=== PATIENT | male | born 1960 | race Caucasian/White ===

== ENCOUNTER → 2019-07-16 | Outpatient (CLI) | payer BC, SELFPAY | PROVIDERS: Family Provider Family Medicine; Visit Provider Internal Medicine Medical Oncology | DX: Z08 Encounter for follow-up examination after completed treatment for malignant neoplasm (principal); Z85.038 Personal history of other malignant neoplasm of large intestine; I10 Essential (primary) hypertension; N20.0 Calculus of kidney; Z98.0 Intestinal bypass and anastomosis status; Z90.49 Acquired absence of other specified parts of digestive tract | CPT/HCPCS: 80053; 82378; 85025; 99213 ==

== ENCOUNTER 2020-01-21 08:43 | Outpatient (CLI) | payer BC, SELFPAY ==
--- NOTE | 2020-01-21 08:49 | CT_ITS ---
WS: [id number] Examination: CT of the chest, abdomen, pelvis. HISTORY: Abdominal pain. Contrast: OmniView 300, [address] of the chest After the bolus injection of contrast the pulmonary arteries fill readily. No filling defects were se en. The mediastinum appear to be normal there is heavy arteriosclerotic changes present the azygos lobe s hows arteriosclerotic changes. The aorta was normal with no filling defect no aneurysms. The peripheral lung show normal perfusion no filling defects to suggest pneumonia, mass effect, pneum onia, are pneumothorax. CT abdomen pelvis the liver was normal no infiltrating changes. The gallbladder shows a large stone measures 3.49 cm. An additional stone is seen along the surface o f the gallbladder. The pancreas was normal no filling defects. The stomach was normal, pancreas normal, the left adrenal gland shows a cyst measures 0.34 cm. A smal l cyst or adenoma seen off the right adrenal gland also. The aorta was normal as well as the inferior vena cava. The left kidney shows a parapelvic cyst measures 9 cm. The ureter was normal on the right. The right colon show no filling defects the appendix was normal as well as the small bowel. The transverse and descending colons were normal. The bladder show no abnormalities. The prostate was normal. The rectum showed no abnormalities. The rectum showed no defects. The bony pelvis was normal. The lumbar spine showed no aggressive changes. CT/CT chest abd pel w con* Impression: The chest appeared to be normal. Multiple cholelithiasis. A large left renal cysts. The left adrenal gland shows a prominent cyst The right adrenal glands suggests an adenoma.
[2020-01-21 09:19] LABS: Basophils % 0.4 %; Eosinophils # 0.2 10^3/uL (0.0-0.8); Eosinophils % 2.6 %; Hematocrit 45.4 % (42.0-52.0); Hemoglobin 14.2 g/dL (11.7-16.6); Lymphocytes # 1.9 10^3/uL (0.8-4.8); Lymphocytes % 27.9 %; Mean Corpuscular HGB Conc 31.3 g/dL (30.0-36.0); Mean Corpuscular Hemoglobin 29.4 pg (28.0-34.0); Mean Platelet Volume 9.7 fL (7.4-10.4); Monocytes # 0.8 10^3/uL (0.2-0.9); Monocytes % 12.1 %; Neutrophils # 3.9 10^3/uL (1.8-7.7); Neutrophils % 56.6 %; Nucleated Red Blood Cells % 0 %; Platelet Count 235 10^3/cmm (130-400); Red Blood Count 4.83 10^6/uL (4.1-5.3); Red Cell Distribution Width 13.6 % (12.1-15.1); White Blood Count 6.8 10^3/uL (4.0-10.0)
[2020-01-21 09:47] LABS: Carcinoembryonic Antigen 5.3 ng/mL (0.0-4.7)
[2020-01-21] MEDS: barium sulfate 450 mL Oral Susp PO (09:49)
[2020-01-21 09:58] LABS: Alanine Aminotransferase 24 U/L (0-41); Albumin Level 4.2 g/dL (3.5-5.2); Alkaline Phosphatase 55 IU/L (40-130); Anion Gap 14.7 (5-19); Aspartate Amino Transferase 18 U/L (0-40); Blood Urea Nitrogen 22 mg/dL (6-20); Calcium 9.9 mg/dL (8.5-10.5); Carbon Dioxide 27 mmol/L (22-29); Chloride 111 mmol/L (98-107); Globulin 2.6 g/dL (1.3-4.6); Glomerular Filtration Rate 86.4 mL/min (90-130); Glucose 111 mg/dL (65-115); Osmolality Calculated 303 mOsm/kg (285-295); Potassium 4.7 mmol/L (3.5-5.1); Sodium 148 mmol/L (136-145); Total Bilirubin 0.5 mg/dL (0.15-1.2); Total Protein 6.8 g/dL (6.6-8.7)
[2020-01-21] MEDS: iohexol 300 mg/mL 100 mL Btl IV (10:01)
== END 2020-01-21 08:44 | disposition home or self-care (01) ==
LOC: CT 08:47
PROVIDERS: PCP Family Medicine; Visit Provider Internal Medicine Medical Oncology
DX: R10.9 Unspecified abdominal pain (principal); C18.7 Malignant neoplasm of sigmoid colon; G62.0 Drug-induced polyneuropathy; K80.20 Calculus of gallbladder without cholecystitis without obstruction; N28.1 Cyst of kidney, acquired; N13.30 Unspecified hydronephrosis
CPT/HCPCS: 36415; 71260; 74177; 80053; 82378; 85025

== ENCOUNTER 2020-01-28 09:07 | Outpatient (CLI) | payer BC, SELFPAY ==
--- NOTE | 2020-01-29 06:41 | ONC FU_ITS ---
Dr. Barrett Patient Follow-Up Note Patient: Bk Tamayo Unit #: [id number]: 1960 Dicatated By: Eric Barrett M.D.Date of Visit:Jan 28, 2020 Onc Med Follow-up/Prog Note Chief Complaint: Colon cancer. 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 He has been in good general health. On 06/22/2016 he presented to the emergency room with back pain and constipation. He hadn't been aware of any blood in the stool or other associated GI symptoms. He had perhaps noticed a little decline in his energy/activity tolerance, and he did have an unexplained weight loss in the range of [address] of the abdomen/pelvis showed abnormal appearance of the sigmoid colon with wall thickening and shouldering. There was mild stranding of the surrounding fat and there are lymph nodes noted in the surrounding fat. The findings were suspicious for colon cancer. He underwent colonoscopy on 06/24/2016. It showed a partially obstructing, large size, fungating, malignant appearing mass in the sigmoid colon. It was circumferential and measured 7 x 5 cm. The scope was not able to be advanced beyond the tumor. On 06/25/2016 he underwent laparoscopic converted to open sigmoid colectomy with colorectal anastomosis. The procedure also included open repair of umbilical hernia. Pathology showed low-grade (well to moderately differentiated) infiltrating adenocarcinoma with penetration through the muscularis propria into the pericolonic fat. The tumor measured 8.0 x 5.5 x 2.7 cm. It did show evidence of lymphovascular space invasion. The margins were free. There was involvement in 6 of 14 pericolonic lymph nodes. His baseline CEA was significantly elevated at 74.0 ng/mL. On 07/28/2016 he underwent placement of Port-A-Cath venous access device in preparation for chemotherapy. Adjuvant chemotherapy with modified FOLFOX began on 08/18/2016. CEA 3.0 ng/mL. He received cycle 2 on 08/31/16. He did have significant nausea with both cycles of treatment, though he had no associated vomiting. He also experience some decrease in energy, and he felt very draggy . He had some shortness of breath with exertion. He had diarrhea with the 2nd cycle, but it lasted only about one day. 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 It was significant enough that he was not able to drink any cold liquids. Those symptoms persisted up until a few days prior to cycle 3 on 09/14/2016, at which point the oxaliplatin dosage was reduced one level. With cycle 4, on 09/28/2016, he had a further reduction in the oxaliplatin dosage for peristent neuropathy. Beginning wt cycle 5, on , the oxaliplatin was omitted. He then continued treatment with minimal toxicity. He began his 12th cycle of chemotherapy on 01/18/2017. Surveillance colonoscopy in 03/10/2017 showed small polyps in the descending and ascending colon. There was narrowing at the anastomotic site. Pathology on the descending colon polyp was tubulovillous adenoma. The ascending colon showed adenomatous polyp. Surveillance CT scans of the chest, abdomen, and pelvis on 06/27/2017 showed no evidence of recurrent or metastatic disease. 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 CT abdomen/pelvis on 12/21/2017 show evidence of prior sigmoidectomy with stable anastomotic site and no evidence of recurrent or metastatic disease. His other medical illnesses have been limited to hypertension and nephrolithiasis. He is a nonsmoker. He had chewed tobacco for 7 or 8 years, but he quit more than 25 years ago. INTERIM HISTORY: As of 07/24/2018 there was an increase in the CEA level to 5.1 ng/mL compared to 3.0 ng/mL on 01/23/2018. His CT scans at that time showed stable sigmoidectomy with no evidence for recurrent mass or adenopathy. There was stable hepatic steatosis and bilateral parapelvic cysts. There was no evidence of metastatic disease to the chest, abdomen, or pelvis. He continued on observation/expectant management. His repeat CEA on 09/02/2018 was minimally higher at 5.4 ng/mL. As of 01/22/2019 his CEA had further increased to 6.7 ng/mL. Surveillance CT scans of the chest, abdomen, and pelvis showed no evidence of a neoplastic process in the chest and no evidence of recurrent or metastatic neoplasm in the abdomen/pelvis. 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 He continued on observation/expectant management. His repeat CEA on 04/23/2019 was stable at 6.3 ng/mL. His surveillance colonoscopy on 06/04/2019 showed stricture at the colorectal anastomosis. There were no other abnormalities noted. He was recommended to have colonoscopy again in one year. Surveillance CT scans on 01/21/2020 showed no evidence of recurrent or metastatic disease in the chest, abdomen, or pelvis. He is seen today for a scheduled visit. He has been feeling good generally. He has good energy and activity tolerance. ECOG score is 0. His appetite is been okay. He generally eats just 1 meal a day, and he recently has lost a little weight, though by our scale he is up 4 pounds compared to a year ago. He does not have fever or night sweats. He occasionally wakes up feeling warm. His cough resolved when he stopped taking lisinopril. He says his blood pressure has been okay when he checks it at home. He does not complain of shortness of breath or chest pain. He has no GI or complaints. He does have some arthritis pain, mainly in the back. He has a little bit of numbness in his hands, which she attributes to carpal tunnel. Medications: Acetaminophen ER 1 (650 mg) Tablet, controlled release Oral PRN, HYDROcodone-Acetaminophen 1 Tablet (of 5-325 mg) Oral PRN Allergies: No Known Allergies. Review of Systems: Constitutional - He is generally feeling really good. His energy is good. He has normal activity. His appetite is good and his weight is up about 4 pounds. No fever, night sweats, or hot flashes. ECOG score is 0, ENMT - No sinus congestion/drainage. No mouth sores. No sore throat or difficulty swallowing, Hematologic/Lymphatic - No abnormal bruising or bleeding, Respiratory - No shortness of breath. His previous cough resolved after stopping lisinopril. No pleuritic pain or hemoptysis, Cardiovascular - No angina pain. No palpitations, Gastrointestinal - No nausea or vomiting. No heartburn or acid reflux. No diarrhea or constipation. No blood in the stool or black stools, Genitourinary (M) - No dysuria or hematuria. No urinary frequency. No urgency or incontinence, Musculoskeletal - He has occasional arthritis pain, Integumentary - No skin complications, Neurologic - No headache or dizziness. He has occasional tingling in his hands, which he believes is related to carpal tunnel. No other focal neurologic symptoms, Psychiatric - No anxiety or depression. No insomnia. Vital Signs: Performed on Jan 28, 2020 09:41 Height - 75.00 in Weight - 278.8 lbs (HIGH) BSA - 2.53 sq.m BMI - 34.85 (HIGH) Temperature - 98.0 F (LOW) Pulse - 77 /min Respiration - 22 /min BP - 161/102 mm(hg) (HIGH) O2 Sat - 97 % Pain - 0 Physical Examination: Constitutional - He looks good generally, Eyes - Sclerae nonicteric. Conjunctivae clear, ENMT - No lesions noted in the oral cavity, Hematologic/Lymphatic - No cervical, clavicular, or axillary adenopathy, Respiratory - Lungs are clear with good air movement bilaterally, Cardiovascular - Heart rhythm is regular. There is no murmur, gallop, or rub noted, Abdomen - Soft. Liver and spleen are not enlarged. There is no abdominal mass or ascites noted and there is no inguinal adenopathy, Extremities - No edema, Neurologic - No focal neurologic deficits noted. Lab/Imaging: CBC shows hemoglobin 14.2 g, white blood cell count 6800, and platelet count 235,000. Comprehensive metabolic profile is unremarkable. CEA is stable at 5.3 ng/mL. Impression: 1. 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 He underwent laparoscopic converted to open sigmoid colon resection on 06/25/2016. 2. Adjuvant chemotherapy with modified FOLFOX began 08/18/2016. As of January 2017 he had completed 12 cycles of treatment. He did require dose reductions in the oxaliplatin due to neuropathy, and it was omitted beginning with cycle 5. He otherwise tolerated the treatment well. His other medical illnesses include: 3. Hypertension. 4. Nephrolithiasis. He had 2 adenomatous polyps on his surveillance colonoscopy in March 2017, and there also was evidence of some stricture at the anastomotic site. He then underwent a dilatation procedure in June 2017. During followup he has been stable clinically. As of July 2018 his CEA had gone up a little, but his surveillance CT scans at that time showed no evidence of recurrence. During follow-up there was a gradual slight increase in his CEA level. His surveillance CT scans in January 2019 showed no evidence of recurrence. His surveillance colonoscopy in May 2019 showed stricture at the colorectal anastomosis, but no other abnormalities were noted. His subsequent CEA levels have remained borderline high, but stable. Overall he has been doing well clinically with no evidence of recurrence of the colon cancer. Plan: He remains on observation/expectant management for colon cancer. He will be scheduled for a follow-up visit in 6 months. Signed By: Eric Barrett M.D. <<Signature on File>>
== END 2020-01-28 09:08 | disposition home or self-care (01) ==
LOC: ONCMED 09:07
PROVIDERS: PCP Family Medicine; Visit Provider Internal Medicine Medical Oncology
DX: Z08 Encounter for follow-up examination after completed treatment for malignant neoplasm (principal); Z85.038 Personal history of other malignant neoplasm of large intestine; I10 Essential (primary) hypertension; N20.0 Calculus of kidney; Z92.21 Personal history of antineoplastic chemotherapy; Z90.49 Acquired absence of other specified parts of digestive tract
CPT/HCPCS: G0463

== ENCOUNTER → 2020-05-10 13:40 | Outpatient (BNVA) | payer BC, SELFPAY | PROVIDERS: PCP Family Medicine; Visit Provider Nurse Practitioner Family | DX: Z20.828 Contact with and (suspected) exposure to other viral communicable diseases (principal) | CPT/HCPCS: 87635 ==

== ENCOUNTER 2020-05-16 14:49 | Emergency (ER) | payer BC, SELFPAY ==
[2020-05-16 14:56] VITALS: BP 134/90; BP 82/48; PULSE 84; PULSE 98; RESP 18; TEMP 36.4; TEMP 37.5; O2SAT 93; O2SAT 99; BMI 33.1; BMI 35.1
--- NOTE | 2020-05-16 15:25 | XR_ITS ---
WS: [id number] Portable AP upright chest, 05/16/2020 Clinical Data: cough + COVID Comparison: Portable chest, 07/28/2016. Findings: Patchy opacities in both lower lobes can be seen. There is greater opacity in the left lowe r lobe than the right. The heart is normal. No nodules, masses or effusions are seen. The aortic arch and descending aorta are tortuous. XR/XR chest 1V portable [id number] Impression: 1. Patchy bilateral opacities consistent with pneumonia. 2. Atherosclerosis.
[2020-05-16 15:27] VITALS: O2SAT 93
[2020-05-16 16:17] VITALS: PULSE 88; O2SAT 93
[2020-05-16 16:18] VITALS: BP 132/68
[2020-05-16 16:27] LABS: Basophils % 0.2 %; Hematocrit 48.2 % (42.0-52.0); Hemoglobin 15.1 g/dL (11.7-16.6); Lymphocytes # 0.9 10^3/uL (0.8-4.8); Lymphocytes % 14.3 %; Mean Corpuscular HGB Conc 31.3 g/dL (30.0-36.0); Mean Corpuscular Hemoglobin 28.3 pg (28.0-34.0); Mean Corpuscular Volume 90.4 fL (80-94); Mean Platelet Volume 9.7 fL (7.4-10.4); Monocytes # 0.6 10^3/uL (0.2-0.9); Monocytes % 9.3 %; Neutrophils % 75.9 %; Nucleated Red Blood Cells % 0 %; Platelet Count 215 10^3/cmm (130-400); Red Blood Count 5.33 10^6/uL (4.1-5.3); Red Cell Distribution Width 13.4 % (12.1-15.1); White Blood Count 6.6 10^3/uL (4.0-10.0)
--- NOTE | 2020-05-16 16:45 | ED_ITS ---
Documented by User: JOSH Devi 05/16/20 18:33 HPI - General Adult General: Chief complaint: General Medical Stated complaint: covid +-symptoms not improving Time Seen by Provider: 05/16/20 15:25 History of Present Illness: HPI narrative: 60-year-old male patient presents to the emergency department with COVID symptoms. He reports was seen on Tuesday at a drive-through, tested positive for COVID on 05/10/2020. He reports onset of symptoms on 05/06/2020. 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 He reports feels really bad. He reports headache from cough, reports photosensitivity, photosensitivity. He has taken Tylenol without improvement of symptoms. He states he has decreased appetite, has lost sense of smell, reports nausea with food, decreased intake of oral fluids. He states cough is productive, dark color, he reports increased shortness of breath and difficulty breathing today. Severity: moderate Relieving factors: rest Associated symptoms: Reports cough, decreased appetite, dyspnea, fevers/chills, headache(s), malaise, nausea, short of breath and weakness; Deny chest pain, rash, palpitations or vomiting Treatments prior to arrival: other (Tylenol) Review of Systems General: Reports: 10 or more systems reviewed and unremarkable except in HPI and below Const: Reports: fever(s), chills, body aches, change in appetite, fatigue and malaise Eyes: Denies: change in vision, blurry vision or eye redness ENMT: Denies: throat pain, dental pain or disequilibrium Card: Reports: dyspnea on exertion; Denies: chest pain, palpitations, irregular heart rhythm, edema, swelling of feet/ankles, lightheadedness or leg pain with exertion Resp: Reports: dyspnea, productive cough, wheezing, change in phlegm color and chest congestion; Denies: hemoptysis GI: Reports: nausea; Denies: vomiting, bloating or hematochezia : Denies: dysuria Musc: Denies: neck pain or back pain Skin/Breast: Denies: rash, pruritus or changes in skin color Neuro: Reports: headache(s) and dizziness; Denies: numbness in extremities, difficulty walking or Slurred speech present Psych: Denies: anxiety or depression Luis A/Lymph: Denies: easy bruising [facility] ED PFSH: Social History (Updated 05/16/20 @ 15:01 by Nomi Earl RN) Smoking and tobacco status: never smoked Alcohol intake: never History of recent travel: No Current gender identity: Male Physical Exam Const: COMMON NORMALS: patient oriented x3, alert and well nourished GENERAL APPEARANCE: cooperative and ill appearing NUTRITIONAL APPEARANCE: obese ORIENTATION/CONSCIOUSNESS: Yes awake, Yes oriented to person, Yes oriented to place and Yes oriented to time HENMT: COMMON NORMALS: normocephalic, atraumatic, TM's normal bilaterally, Normal external nose present, Normal nasal mucous membranes and turbinates present and oropharynx normal HEAD & SCALP: normocephalic and atraumatic FACE & SINUS: normal facial exam, sinuses nontender and face symmetric NOSE: Normal external nose present and Normal nasal mucous membranes and turbinates present TYMPANIC MEMBRANE: TM's normal bilaterally MOUTH: Normal oral and palatal mucosa present THROAT: posterior oropharynx normal Eye: COMMON NORMALS: Equal, round and reactive pupils present and EOMs intact bilaterally GENERAL EYE: appearance normal, both eyes and all related structures EYELID: eyelids normal PUPIL: Yes Equal, round and reactive pupils present DIRECT OPHTHALMOSCOPY: Yes photophobia Neck/C-Spine: COMMON NORMALS: full ROM and no lymphadenopathy GENERAL: Yes normal visual inspection and Yes trachea midline CERVICAL SPINE: Yes cervical ROM normal, No pain with cervical ROM, No Cervical spine tenderness and No Paracervical muscle tenderness Lymph: LYMPHATIC: no lymphadenopathy noted Chest: COMMONS NORMALS: normal inspection of the chest and normal palpation of entire chest wall Resp: COMMON NORMALS: normal respiratory effort and clear to auscultation bilaterally EFFORT & INSPECTION: Yes tachypneic AUSCULTATION: clear to auscultation bilaterally, rhonchi, wheezes and diminished lung sounds bilateral Cardio: COMMON NORMALS: regular rhythm, S1 normal heart sound present, S2 normal heart sound present and Peripheral pulses 2+ throughout RHYTHM: regular rhythm HEART SOUNDS: S1 normal heart sound present and S2 normal heart sound present PERIPHERAL PULSES: Peripheral pulses 2+ throughout GI: COMMON NORMALS: Normal to inspection, nondistended, normoactive bowel sounds present, Soft to palpation and non-tender INSPECTION: Yes normal to inspection PALPATION: Yes Soft to palpation : COMMON NORMALS: Yes no CVA tenderness BLADDER/KIDNEY EXAM: Yes no CVA tenderness Back/Pelvis: COMMON NORMALS: no CVA tenderness and thoracic and lumbar spine normal to inspection Extremity: COMMON NORMALS: normal to inspection and capillary refill normal Neuro: COMMON NORMALS: patient oriented x3 and no focal motor deficits SENSORIUM/ORIENTATION: Yes alert, Yes oriented to person, Yes oriented to place and Yes oriented to time Psych: COMMON NORMALS: mental status grossly normal, Normal thought process present and cooperative ACTIVITY/MOTOR BEHAVIOR: Yes appropriate eye contact THOUGHT PROCESS: Normal thought process present Skin: COMMON NORMALS: no rashes or lesions noted and turgor normal GENERAL SKIN EXAM: no rashes or lesions noted and turgor normal Course ED course: 60-year-old male patient presents to the emergency department with COVID symptoms, short shortness of breath, difficulty breathing and cough. Patient was administered IV fluids here in the emergency room which helped his headache. He was administered ibuprofen. O2 saturation while resting remained 93 to 96%. Upon ambulation attempt, patient's oxygen saturation dropped to 83%. Case was discussed with Dr. Hoffmann, REMDESIVIR and dexamethasone initiated, transfer of care to Dr. Hoffmann as patient will need admission secondary to hypoxia. Vital Signs: Vital signs: Vital Signs Temperature 97.6 F 05/16/20 14:56 Pulse Rate 85 05/16/20 22:00 Respiratory Rate 20 H 05/16/20 22:00 Blood Pressure 114/65 05/16/20 22:00 Pulse Oximetry 91 05/16/20 22:00 [facility] - General Adult Lab Data: Labs: Lab Results 05/16/20 05/16/20 05/16/20 Range/Units 16:19 16:19 16:19 WBC 6.6 (4.0-10.0) 10^3/ uL RBC 5.33 H (4.1-5.3) 10^6/u L Hgb 15.1 (11.7-16.6) g/dL Hct 48.2 (42.0-52.0) % MCV 90.4 (80-94) fL MCH 28.3 (28.0-34.0) pg MCHC 31.3 (30.0-36.0) g/dL RDW 13.4 (12.1-15.1) % Plt Count 215 (130-400) 10^3/c mm MPV 9.7 (7.4-10.4) fL Neut % (Auto) 75.9 % Lymph % (Auto) 14.3 % [place] % (Auto) 9.3 % Eos % (Auto) 0.0 % Baso % (Auto) 0.2 % Neut # (Auto) 5.00 (1.8-7.7) 10^3/u L Lymph # (Auto) 0.9 (0.8-4.8) 10^3/u L [place] # (Auto) 0.6 (0.2-0.9) 10^3/u L Eos # (Auto) 0.0 (0.0-0.8) 10^3/u L Baso # (Auto) 0.0 (0.0-0.1) 10^3/u L Nucleated RBC % (a uto) 0 % Nucleated RBCs # 0.0 /100WBC PT (12.1-14.9) SECO NDS INR (0.8-1.2) APTT (23.9-36.7) SECO NDS Fibrinogen 705 H (174-498) mg/dL D-Dimer 0.51 (0-0.59) ug/mIFE U Specimen Type Sample Site ABG pH (7.35-7.45) ABG pCO2 (35-45) mmHg ABG pO2 (80.0-100.0) mmH g ABG HCO3 (22-26) mmol/L ABG Base Excess (-2.0-2.0) mmol/ L Bear Test Hematocrit (42-52) % O2 Delivery Device O2 Liters/Min % Nail Cutter ID Sodium 137 (136-145) mmol/L Potassium 3.9 (3.5-5.1) mmol/L Chloride 96 L (98-107) mmol/L Carbon Dioxide 26 (22-29) mmol/L Anion Gap 18.9 (5-19) BUN 18 (8-23) mg/dL Creatinine 0.9 (0.7-1.2) mg/dL GFR Calculation 86.1 L (90-130) mL/min Glucose 114 (65-115) mg/dL Calculated Osmolal ity 287 (285-295) mOsm/k g Lactate (0.5-2.2) mmol/L Calcium 8.9 (8.5-10.5) mg/dL Ferritin 755 H (30-400) ng/mL Total Bilirubin 0.9 (0.15-1.2) mg/dL AST 38 (0-40) U/L ALT 52 H (0-41) U/L Alkaline Phosphata se 59 (40-130) IU/L Lactate Dehydrogen ase 331 H (135-225) U/L C-Reactive Protein 125.0 H (0.0-4.9) mg/L Total Protein 7.5 (6.6-8.7) g/dL Albumin 4.0 (3.5-5.2) g/dL Globulin 3.5 (1.3-4.6) g/dL Procalcitonin 0.13 (0-0.5) ng/mL SARS-CoV-2 Ag (Rap id) (Negative) 05/16/20 05/16/20 05/16/20 Range/Units 16:19 16:19 17:49 WBC (4.0-10.0) 10^3/ uL RBC (4.1-5.3) 10^6/u L Hgb (11.7-16.6) g/dL Hct (42.0-52.0) % MCV (80-94) fL MCH (28.0-34.0) pg MCHC (30.0-36.0) g/dL RDW (12.1-15.1) % Plt Count (130-400) 10^3/c mm MPV (7.4-10.4) fL Neut % (Auto) % Lymph % (Auto) % Kittson % (Auto) % Eos % (Auto) % Baso % (Auto) % Neut # (Auto) (1.8-7.7) 10^3/u L Lymph # (Auto) (0.8-4.8) 10^3/u L Kittson # (Auto) (0.2-0.9) 10^3/u L Eos # (Auto) (0.0-0.8) 10^3/u L Baso # (Auto) (0.0-0.1) 10^3/u L Nucleated RBC % (a uto) % Nucleated RBCs # /100WBC PT 13.80 (12.1-14.9) SECO NDS INR 1.03 (0.8-1.2) APTT 36.1 (23.9-36.7) SECO NDS Fibrinogen (174-498) mg/dL D-Dimer (0-0.59) ug/mIFE U Specimen Type Sample Site ABG pH (7.35-7.45) ABG pCO2 (35-45) mmHg ABG pO2 (80.0-100.0) mmH g ABG HCO3 (22-26) mmol/L ABG Base Excess (-2.0-2.0) mmol/ L Bear Test Hematocrit (42-52) % O2 Delivery Device O2 Liters/Min % Nail Cutter ID Sodium (136-145) mmol/L Potassium (3.5-5.1) mmol/L Chloride (98-107) mmol/L Carbon Dioxide (22-29) mmol/L Anion Gap (5-19) BUN (8-23) mg/dL Creatinine (0.7-1.2) mg/dL GFR Calculation (90-130) mL/min Glucose (65-115) mg/dL Calculated Osmolal ity (285-295) mOsm/k g Lactate 3.0 H (0.5-2.2) mmol/L Calcium (8.5-10.5) mg/dL Ferritin (30-400) ng/mL Total Bilirubin (0.15-1.2) mg/dL AST (0-40) U/L ALT (0-41) U/L Alkaline Phosphata se (40-130) IU/L Lactate Dehydrogen ase (135-225) U/L C-Reactive Protein (0.0-4.9) mg/L Total Protein (6.6-8.7) g/dL Albumin (3.5-5.2) g/dL Globulin (1.3-4.6) g/dL Procalcitonin (0-0.5) ng/mL SARS-CoV-2 Ag (Rap id) Positive H (Negative) 05/16/20 Range/Units 20:11 WBC (4.0-10.0) 10^3/ uL RBC (4.1-5.3) 10^6/u L Hgb (11.7-16.6) g/dL Hct (42.0-52.0) % MCV (80-94) fL MCH (28.0-34.0) pg MCHC (30.0-36.0) g/dL RDW (12.1-15.1) % Plt Count (130-400) 10^3/c mm MPV (7.4-10.4) fL Neut % (Auto) % Lymph % (Auto) % Kittson % (Auto) % Eos % (Auto) % Baso % (Auto) % Neut # (Auto) (1.8-7.7) 10^3/u L Lymph # (Auto) (0.8-4.8) 10^3/u L Kittson # (Auto) (0.2-0.9) 10^3/u L Eos # (Auto) (0.0-0.8) 10^3/u L Baso # (Auto) (0.0-0.1) 10^3/u L Nucleated RBC % (a uto) % Nucleated RBCs # /100WBC PT (12.1-14.9) SECO NDS INR (0.8-1.2) APTT (23.9-36.7) SECO NDS Fibrinogen (174-498) mg/dL D-Dimer (0-0.59) ug/mIFE U Specimen Type Arterial Sample Site Radial, right ABG pH 7.47 H (7.35-7.45) ABG pCO2 39.2 (35-45) mmHg ABG pO2 59.8 L (80.0-100.0) mmH g ABG HCO3 28.4 H (22-26) mmol/L ABG Base Excess 4.4 H (-2.0-2.0) mmol/ L Bear Test Pos Hematocrit 41.0 L (42-52) % O2 Delivery Device Nc O2 Liters/Min 2.0 % Nail Cutter ID Harkr Sodium (136-145) mmol/L Potassium (3.5-5.1) mmol/L Chloride (98-107) mmol/L Carbon Dioxide (22-29) mmol/L Anion Gap (5-19) BUN (8-23) mg/dL Creatinine (0.7-1.2) mg/dL GFR Calculation (90-130) mL/min Glucose (65-115) mg/dL Calculated Osmolal ity (285-295) mOsm/k g Lactate (0.5-2.2) mmol/L Calcium (8.5-10.5) mg/dL Ferritin (30-400) ng/mL Total Bilirubin (0.15-1.2) mg/dL AST (0-40) U/L ALT (0-41) U/L Alkaline Phosphata se (40-130) IU/L Lactate Dehydrogen ase (135-225) U/L C-Reactive Protein (0.0-4.9) mg/L Total Protein (6.6-8.7) g/dL Albumin (3.5-5.2) g/dL Globulin (1.3-4.6) g/dL Procalcitonin (0-0.5) ng/mL SARS-CoV-2 Ag (Rap id) (Negative) Imaging Data^: CXR: Radiologist's impression: [address] [address] XRay Report Signed Patient: Bk Tamayo Unit #: [id number] : 1960 Age/Sex: 60 / M ADM Date: 05/16/20 Loc: ER Room/Bed: Attending Dr: Ordering Provider/Ordering MD: Angelita Torres Date of Service: 05/16/20 Procedure(s): XR chest 1V portable [id number] Accession Number(s): [id number] Report Number: [id number] WS: [id number] Portable AP upright chest, 05/16/2020 Clinical Data: cough + COVID Comparison: Portable chest, 07/28/2016. Findings: Patchy opacities in both lower lobes can be seen. There is greater opacity in the left lower lobe than the right. The heart is normal. No nodules, masses or effusions are seen. The aortic arch and descending aorta are tortuous. XR/XR chest 1V portable [id number] Impression: 1. Patchy bilateral opacities consistent with pneumonia. 2. Atherosclerosis. Dictated By: Kristel Rawls MD Signed By: Kristel Rawls MD Signed Date/Time: 05/16/20 1546 DD/ 1544 EKG Data^: EKG 1: Computer generated interpretation: Chest X-Ray 05/16/20 15:25 Impression: 1. Patchy bilateral opacities consistent with pneumonia. 2. Atherosclerosis. Discharge Plan Discharge Patient Disposition: Xfer Short-Term Hosp Clinical Impression: COVID-19 virus infection, Viral pneumonitis Condition: Stable Discharge Orders: Discharge Order (Routine); Ordered 05/16/20 Ordered By: Angelita Torres Referrals: Janeth Ramirez DO [Primary Care Provider] - Discharge Date/Time: 05/16/20 22:51 Sign Out Sign Out Data: Patient Sign Out occurred on 05/16/20 at 19:07. Patient's care was discussed, and care was transferred from to Rajwinder Scott. 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 Documented by User: Rajwinder Scott 05/17/20 04:25 HPI - General Adult General: Chief complaint: General Medical Stated complaint: covid +-symptoms not improving Time Seen by Provider: 05/16/20 15:25 [facility] ED PFSH: Social History (Updated 05/16/20 @ 15:01 by Nomi Earl RN) Smoking and tobacco status: never smoked Alcohol intake: never History of recent travel: No Current gender identity: Male Course Vital Signs: Vital signs: Vital Signs Temperature 97.6 F 05/16/20 14:56 Pulse Rate 85 05/16/20 22:00 Respiratory Rate 20 H 05/16/20 22:00 Blood Pressure 114/65 05/16/20 22:00 Pulse Oximetry 91 05/16/20 22:00 MDM - General Adult MDM Narrative: Medical decision making narrative: 2214 -patient is no longer in respiratory distress and is not hypoxic on 2 L nasal cannula oxygen. His COVID is progressing but he is not distress at this time. Our hospital is full and we will not have the capabilities of keeping him here. I discussed the case with Dr. Huertas at [facility] and he will accept the patient in transfer. Lab Data: Labs: Lab Results 05/16/20 05/16/20 05/16/20 Range/Units 16:19 16:19 16:19 WBC 6.6 (4.0-10.0) 10^3/ uL RBC 5.33 H (4.1-5.3) 10^6/u L Hgb 15.1 (11.7-16.6) g/dL Hct 48.2 (42.0-52.0) % MCV 90.4 (80-94) fL MCH 28.3 (28.0-34.0) pg MCHC 31.3 (30.0-36.0) g/dL RDW 13.4 (12.1-15.1) % Plt Count 215 (130-400) 10^3/c mm MPV 9.7 (7.4-10.4) fL Neut % (Auto) 75.9 % Lymph % (Auto) 14.3 % Kittson % (Auto) 9.3 % Eos % (Auto) 0.0 % Baso % (Auto) 0.2 % Neut # (Auto) 5.00 (1.8-7.7) 10^3/u L Lymph # (Auto) 0.9 (0.8-4.8) 10^3/u L Kittson # (Auto) 0.6 (0.2-0.9) 10^3/u L Eos # (Auto) 0.0 (0.0-0.8) 10^3/u L Baso # (Auto) 0.0 (0.0-0.1) 10^3/u L Nucleated RBC % (a uto) 0 % Nucleated RBCs # 0.0 /100WBC PT (12.1-14.9) SECO NDS INR (0.8-1.2) APTT (23.9-36.7) SECO NDS Fibrinogen 705 H (174-498) mg/dL D-Dimer 0.51 (0-0.59) ug/mIFE U Specimen Type Sample Site ABG pH (7.35-7.45) ABG pCO2 (35-45) mmHg ABG pO2 (80.0-100.0) mmH g ABG HCO3 (22-26) mmol/L ABG Base Excess (-2.0-2.0) mmol/ L Bear Test Hematocrit (42-52) % O2 Delivery Device O2 Liters/Min % Nail Cutter ID Sodium 137 (136-145) mmol/L Potassium 3.9 (3.5-5.1) mmol/L Chloride 96 L (98-107) mmol/L Carbon Dioxide 26 (22-29) mmol/L Anion Gap 18.9 (5-19) BUN 18 (8-23) mg/dL Creatinine 0.9 (0.7-1.2) mg/dL GFR Calculation 86.1 L (90-130) mL/min Glucose 114 (65-115) mg/dL Calculated Osmolal ity 287 (285-295) mOsm/k g Lactate (0.5-2.2) mmol/L Calcium 8.9 (8.5-10.5) mg/dL Ferritin 755 H (30-400) ng/mL Total Bilirubin 0.9 (0.15-1.2) mg/dL AST 38 (0-40) U/L ALT 52 H (0-41) U/L Alkaline Phosphata se 59 (40-130) IU/L Lactate Dehydrogen ase 331 H (135-225) U/L C-Reactive Protein 125.0 H (0.0-4.9) mg/L Total Protein 7.5 (6.6-8.7) g/dL Albumin 4.0 (3.5-5.2) g/dL Globulin 3.5 (1.3-4.6) g/dL Procalcitonin 0.13 (0-0.5) ng/mL SARS-CoV-2 Ag (Rap id) (Negative) 05/16/20 05/16/20 05/16/20 Range/Units 16:19 16:19 17:49 WBC (4.0-10.0) 10^3/ uL RBC (4.1-5.3) 10^6/u L Hgb (11.7-16.6) g/dL Hct (42.0-52.0) % MCV (80-94) fL MCH (28.0-34.0) pg MCHC (30.0-36.0) g/dL RDW (12.1-15.1) % Plt Count (130-400) 10^3/c mm MPV (7.4-10.4) fL Neut % (Auto) % Lymph % (Auto) % Kittson % (Auto) % Eos % (Auto) % Baso % (Auto) % Neut # (Auto) (1.8-7.7) 10^3/u L Lymph # (Auto) (0.8-4.8) 10^3/u L Kittson # (Auto) (0.2-0.9) 10^3/u L Eos # (Auto) (0.0-0.8) 10^3/u L Baso # (Auto) (0.0-0.1) 10^3/u L Nucleated RBC % (a uto) % Nucleated RBCs # /100WBC PT 13.80 (12.1-14.9) SECO NDS INR 1.03 (0.8-1.2) APTT 36.1 (23.9-36.7) SECO NDS Fibrinogen (174-498) mg/dL D-Dimer (0-0.59) ug/mIFE U Specimen Type Sample Site ABG pH (7.35-7.45) ABG pCO2 (35-45) mmHg ABG pO2 (80.0-100.0) mmH g ABG HCO3 (22-26) mmol/L ABG Base Excess (-2.0-2.0) mmol/ L Bear Test Hematocrit (42-52) % O2 Delivery Device O2 Liters/Min % Nail Cutter ID Sodium (136-145) mmol/L Potassium (3.5-5.1) mmol/L Chloride (98-107) mmol/L Carbon Dioxide (22-29) mmol/L Anion Gap (5-19) BUN (8-23) mg/dL Creatinine (0.7-1.2) mg/dL GFR Calculation (90-130) mL/min Glucose (65-115) mg/dL Calculated Osmolal ity (285-295) mOsm/k g Lactate 3.0 H (0.5-2.2) mmol/L Calcium (8.5-10.5) mg/dL Ferritin (30-400) ng/mL Total Bilirubin (0.15-1.2) mg/dL AST (0-40) U/L ALT (0-41) U/L Alkaline Phosphata se (40-130) IU/L Lactate Dehydrogen ase (135-225) U/L C-Reactive Protein (0.0-4.9) mg/L Total Protein (6.6-8.7) g/dL Albumin (3.5-5.2) g/dL Globulin (1.3-4.6) g/dL Procalcitonin (0-0.5) ng/mL SARS-CoV-2 Ag (Rap id) Positive H (Negative) 05/16/20 Range/Units 20:11 WBC (4.0-10.0) 10^3/ uL RBC (4.1-5.3) 10^6/u L Hgb (11.7-16.6) g/dL Hct (42.0-52.0) % MCV (80-94) fL MCH (28.0-34.0) pg MCHC (30.0-36.0) g/dL RDW (12.1-15.1) % Plt Count (130-400) 10^3/c mm MPV (7.4-10.4) fL Neut % (Auto) % Lymph % (Auto) % Kittson % (Auto) % Eos % (Auto) % Baso % (Auto) % Neut # (Auto) (1.8-7.7) 10^3/u L Lymph # (Auto) (0.8-4.8) 10^3/u L Kittson # (Auto) (0.2-0.9) 10^3/u L Eos # (Auto) (0.0-0.8) 10^3/u L Baso # (Auto) (0.0-0.1) 10^3/u L Nucleated RBC % (a uto) % Nucleated RBCs # /100WBC PT (12.1-14.9) SECO NDS INR (0.8-1.2) APTT (23.9-36.7) SECO NDS Fibrinogen (174-498) mg/dL D-Dimer (0-0.59) ug/mIFE U Specimen Type Arterial Sample Site Radial, right ABG pH 7.47 H (7.35-7.45) ABG pCO2 39.2 (35-45) mmHg ABG pO2 59.8 L (80.0-100.0) mmH g ABG HCO3 28.4 H (22-26) mmol/L ABG Base Excess 4.4 H (-2.0-2.0) mmol/ L Bear Test Pos Hematocrit 41.0 L (42-52) % O2 Delivery Device Nc O2 Liters/Min 2.0 % Nail Cutter ID Harkr Sodium (136-145) mmol/L Potassium (3.5-5.1) mmol/L Chloride (98-107) mmol/L Carbon Dioxide (22-29) mmol/L Anion Gap (5-19) BUN (8-23) mg/dL Creatinine (0.7-1.2) mg/dL GFR Calculation (90-130) mL/min Glucose (65-115) mg/dL Calculated Osmolal ity (285-295) mOsm/k g Lactate (0.5-2.2) mmol/L Calcium (8.5-10.5) mg/dL Ferritin (30-400) ng/mL Total Bilirubin (0.15-1.2) mg/dL AST (0-40) U/L ALT (0-41) U/L Alkaline Phosphata se (40-130) IU/L Lactate Dehydrogen ase (135-225) U/L C-Reactive Protein (0.0-4.9) mg/L Total Protein (6.6-8.7) g/dL Albumin (3.5-5.2) g/dL Globulin (1.3-4.6) g/dL Procalcitonin (0-0.5) ng/mL SARS-CoV-2 Ag (Rap id) (Negative) EKG Data^: EKG 1: Attestation: I personally reviewed and interpreted this EKG as follows: EKG interpretation date: 05/16/20 EKG interpretation time: 19:20 Interpretation: Normal sinus rhythm at 93 beats a minute, left axis deviation, no blocks, normal intervals, no acute ST-T wave changes. Computer generated interpretation: Chest X-Ray 05/16/20 15:25 Impression: 1. Patchy bilateral opacities consistent with pneumonia. 2. Atherosclerosis. Discharge Plan Discharge Patient Disposition: Xfer Short-Term Hosp Clinical Impression: COVID-19 virus infection, Viral pneumonitis Condition: Stable Discharge Orders: Discharge Order (Routine); Ordered 05/16/20 Ordered By: Angelita Torres Referrals: Janeth Ramirez DO [Primary Care Provider] - Discharge Date/Time: 05/16/20 22:51 Sign Out Sign Out Data: Patient Sign Out occurred on 05/16/20 at 19:07. Patient's care was discussed, and care was transferred from to Rajwinder Scott. 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
[2020-05-16 16:49] LABS: Fibrinogen 705 mg/dL (174-498)
[2020-05-16 16:52] LABS: D Dimer 0.51 ug/mIFEU (0-0.59)
[2020-05-16 17:15] LABS: Procalcitonin 0.13 ng/mL (0-0.5)
[2020-05-16 17:26] LABS: Alanine Aminotransferase 52 U/L (0-41); Alkaline Phosphatase 59 IU/L (40-130); Anion Gap 18.9 (5-19); Aspartate Amino Transferase 38 U/L (0-40); Blood Urea Nitrogen 18 mg/dL (8-23); Calcium 8.9 mg/dL (8.5-10.5); Carbon Dioxide 26 mmol/L (22-29); Chloride 96 mmol/L (98-107); Ferritin 755 ng/mL (30-400); Globulin 3.5 g/dL (1.3-4.6); Glomerular Filtration Rate 86.1 mL/min (90-130); Glucose 114 mg/dL (65-115); Lactate Dehydrogenase 331 U/L (135-225); Osmolality Calculated 287 mOsm/kg (285-295); Potassium 3.9 mmol/L (3.5-5.1); Sodium 137 mmol/L (136-145); Total Bilirubin 0.9 mg/dL (0.15-1.2); Total Protein 7.5 g/dL (6.6-8.7)
[2020-05-16 18:26] VITALS: PULSE 108; RESP 24; O2SAT 86
--- NOTE | 2020-05-16 18:26 | PC.NURSE ---
Pt desats to 86% while ambulating in [place], reported to Angelita MARROQUIN
[2020-05-16] MEDS: dexamethasone 10 mg/mL INJ IVP (19:00)
[2020-05-16] MEDS: sodium chloride 0.9% 500 ML 999 ML IV (19:00)
--- NOTE | 2020-05-16 19:01 | ECG_ITS ---
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 [id number]
[2020-05-16 19:25] LABS: INR 1.03 (0.8-1.2)
[2020-05-16 19:26] LABS: Partial Thromboplastin Time 36.1 SECONDS (23.9-36.7)
[2020-05-16 20:01] LABS: SARS Covid-2 Antigen Positive (Negative)
[2020-05-16 20:21] LABS: ABG PCO2 39.2 mmHg (35-45); ABG PH Result 7.47 (7.35-7.45); Base Excess ABG 4.4 mmol/L (-2.0-2.0); Blood Gas Allen Test Pos; Blood Gas Sample Type Arterial; HCO3 ABG 28.4 mmol/L (22-26); PO2 ABG 59.8 mmHg (80.0-100.0)
[2020-05-16 20:22] LABS: Blood Gas Operator Identificat HARKR; Blood Gas Sample Site Radial, right; Oxygen Device NC
[2020-05-16] MEDS: sodium chloride 0.9% 1,000 ML 100 ML IV (21:38)
[2020-05-16] MEDS: levofloxacin-dextrose 5 % 750 MG/150 ML PREMIX 150 MG IV (21:38)
[2020-05-16 22:00] VITALS: BP 114/65; PULSE 85; RESP 20; O2SAT 91
--- NOTE | 2020-05-16 22:23 | PC.NURSE ---
Report called to Gina Cottrell RN at [facility].
== END 2020-05-16 22:51 | disposition short-term general hospital (02) ==
PROVIDERS: Nurse Practitioner Family; Emergency Provider Emergency Medicine; PCP Family Medicine
DX: U07.1 COVID-19 (principal); J12.89 Other viral pneumonia
CPT/HCPCS: 12345; 36415; 36600; 71045; 80053; 82728; 82803; 83605; 83615; 84145; 85025; 85378; 85384; 85610; 85730; 86140; 87040; 87426; 93005; 96365; 96367; 96375; 99283; 99284; J1100; J1956; J7030; J7040

== ENCOUNTER 2020-09-01 08:10 | Outpatient (CLI) | payer BC, SELFPAY ==
[2020-09-01 09:21] LABS: Alanine Aminotransferase 14 U/L (0-41); Albumin Level 3.8 g/dL (3.5-5.2); Alkaline Phosphatase 51 IU/L (40-130); Aspartate Amino Transferase 16 U/L (0-40); Blood Urea Nitrogen 13 mg/dL (8-23); Calcium 9.1 mg/dL (8.5-10.5); Carbon Dioxide 26 mmol/L (22-29); Chloride 106 mmol/L (98-107); Glomerular Filtration Rate 98.6 mL/min (90-130); Glucose 109 mg/dL (65-115); Osmolality Calculated 293 mOsm/kg (285-295); Sodium 141 mmol/L (136-145); Total Bilirubin 0.7 mg/dL (0.15-1.2)
[2020-09-01 09:49] LABS: Basophils % 0.5 %; Eosinophils # 0.2 10^3/uL (0.0-0.8); Eosinophils % 2.8 %; Hematocrit 44.1 % (42.0-52.0); Hemoglobin 14.3 g/dL (11.7-16.6); Lymphocytes # 1.6 10^3/uL (0.8-4.8); Lymphocytes % 25.8 %; Mean Corpuscular HGB Conc 32.4 g/dL (30.0-36.0); Mean Corpuscular Hemoglobin 28.9 pg (28.0-34.0); Mean Corpuscular Volume 89.3 fL (80-94); Mean Platelet Volume 9.6 fL (7.4-10.4); Monocytes # 0.7 10^3/uL (0.2-0.9); Monocytes % 10.6 %; Neutrophils % 59.8 %; Nucleated Red Blood Cells % 0 %; Platelet Count 232 10^3/cmm (130-400); Red Blood Count 4.94 10^6/uL (4.1-5.3); Red Cell Distribution Width 13.7 % (12.1-15.1); White Blood Count 6.4 10^3/uL (4.0-10.0)
[2020-09-01 14:49] LABS: Anion Gap 13.7 (5-19); Carcinoembryonic Antigen 5.4 ng/mL (0.0-4.7); Globulin 2.3 g/dL (1.3-4.6); Potassium 4.7 mmol/L (3.5-5.1); Total Protein 6.1 g/dL (6.6-8.7)
--- NOTE | 2020-09-05 16:58 | ONC FU_ITS ---
Dr. Barrett Patient Follow-Up Note Patient: Bk Tamayo Unit #: [id number]: 1960 Dicatated By: Eric Barrett M.D.Date of Visit:Sep 01, 2020 Onc Med Follow-up/Prog Note Chief Complaint: Colon cancer. 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 On 06/22/2016 he presented to the emergency room with back pain and constipation. He hadn't been aware of any blood in the stool or other associated GI symptoms. He had perhaps noticed a little decline in his energy/activity tolerance, and he did have an unexplained weight loss in the range of [address] of the abdomen/pelvis showed abnormal appearance of the sigmoid colon with wall thickening and shouldering. There was mild stranding of the surrounding fat and there are lymph nodes noted in the surrounding fat. The findings were suspicious for colon cancer. He underwent colonoscopy on 06/24/2016. It showed a partially obstructing, large size, fungating, malignant appearing mass in the sigmoid colon. It was circumferential and measured 7 x 5 cm. The scope was not able to be advanced beyond the tumor. On 06/25/2016 he underwent laparoscopic converted to open sigmoid colectomy with colorectal anastomosis. The procedure also included open repair of umbilical hernia. Pathology showed low-grade (well to moderately differentiated) infiltrating adenocarcinoma with penetration through the muscularis propria into the pericolonic fat. The tumor measured 8.0 x 5.5 x 2.7 cm. It did show evidence of lymphovascular space invasion. The margins were free. There was involvement in 6 of 14 pericolonic lymph nodes. His baseline CEA was significantly elevated at 74.0 ng/mL. On 07/28/2016 he underwent placement of Port-A-Cath venous access device in preparation for chemotherapy. Adjuvant chemotherapy with modified FOLFOX began on 08/18/2016. CEA 3.0 ng/mL. He received cycle 2 on 08/31/16. He did have significant nausea with both cycles of treatment, though he had no associated vomiting. He also experience some decrease in energy, and he felt very draggy . He had some shortness of breath with exertion. He had diarrhea with the 2nd cycle, but it lasted only about one day. 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 It was significant enough that he was not able to drink any cold liquids. Those symptoms persisted up until a few days prior to cycle 3 on 09/14/2016, at which point the oxaliplatin dosage was reduced one level. With cycle 4, on 09/28/2016, he had a further reduction in the oxaliplatin dosage for peristent neuropathy. Beginning wt cycle 5, on , the oxaliplatin was omitted. He then continued treatment with minimal toxicity. He began his 12th cycle of chemotherapy on 01/18/2017. Surveillance colonoscopy in 03/10/2017 showed small polyps in the descending and ascending colon. There was narrowing at the anastomotic site. Pathology on the descending colon polyp was tubulovillous adenoma. The ascending colon showed adenomatous polyp. Surveillance CT scans of the chest, abdomen, and pelvis on 06/27/2017 showed no evidence of recurrent or metastatic disease. 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 CT abdomen/pelvis on 12/21/2017 show evidence of prior sigmoidectomy with stable anastomotic site and no evidence of recurrent or metastatic disease. His other medical illnesses have been limited to hypertension and nephrolithiasis. He is a nonsmoker. He had chewed tobacco for 7 or 8 years, but he quit more than 25 years ago. INTERIM HISTORY: As of 07/24/2018 there was an increase in the CEA level to 5.1 ng/mL compared to 3.0 ng/mL on 01/23/2018. His CT scans at that time showed stable sigmoidectomy with no evidence for recurrent mass or adenopathy. There was stable hepatic steatosis and bilateral parapelvic cysts. There was no evidence of metastatic disease to the chest, abdomen, or pelvis. He continued on observation/expectant management. His repeat CEA on 09/02/2018 was minimally higher at 5.4 ng/mL. As of 01/22/2019 his CEA had further increased to 6.7 ng/mL. CT scans of the chest, abdomen, and pelvis showed no evidence of a neoplastic process in the chest and no evidence of recurrent or metastatic neoplasm in the abdomen/pelvis. 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 His repeat CEA on 04/23/2019 was stable at 6.3 ng/mL. His surveillance colonoscopy on 06/04/2019 showed stricture at the colorectal anastomosis. There were no other abnormalities noted. He was recommended to have colonoscopy again in one year. His CT scans on 01/21/2020 showed no evidence of recurrent or metastatic disease in the chest, abdomen, or pelvis. He continued on observation/expectant management. He is seen today for a scheduled visit. He indicates that he was diagnosed with COVID-19 virus infection near the end of April. It was complicated by pneumonia, and he had to remain off work until June. He says his energy now is back up to about 90%. He has normal activity. ECOG score is 0. Appetite is good. He has no fever or night sweats. He does not complain of shortness of breath or cough. He still has a little pain when he takes a real deep breath. He has no GI or complaints. He has a little bit of joint soreness. He has no focal neurologic symptoms. Medications: Acetaminophen ER 1 (650 mg) Tablet, controlled release Oral PRN, HYDROcodone-Acetaminophen 1 Tablet (of 5-325 mg) Oral PRN Allergies: No Known Allergies. Vital Signs: Performed on Sep 01, 2020 09:30 Height - 75.00 in Weight - 274.8 lbs (LOW) BSA - 2.51 sq.m BMI - 34.35 (HIGH) Temperature - 96.4 F (LOW) Pulse - 76 /min Respiration - 20 /min BP - 150/102 mm(hg) (HIGH) O2 Sat - 97 % Pain - 0 Fatigue - 0 Physical Examination: Constitutional - He looks good generally, Eyes - Sclerae nonicteric. Conjunctivae clear, ENMT - No lesions noted in the oral cavity, Hematologic/Lymphatic - No cervical, clavicular, or axillary adenopathy, Respiratory - Lungs are clear with good air movement bilaterally, Cardiovascular - Heart rhythm is regular. There is no murmur, gallop, or rub noted, Abdomen - Soft. Liver and spleen are not enlarged. There is no abdominal mass or ascites noted and there is no inguinal adenopathy, Extremities - No edema, Neurologic - No focal neurologic deficits noted. Lab/Imaging: CBC shows hemoglobin 14.3 g, white blood cell count 6400, and platelet count 232,000. Comprehensive metabolic profile is unremarkable. CEA is stable at 5.4 ng/mL. Problem List: 1. 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 He underwent laparoscopic converted to open sigmoid colon resection on 06/25/2016. 2. Hypertension. 3. Nephrolithiasis. 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 He underwent laparoscopic converted to open sigmoid colon resection on 06/25/2016. He was given adjuvant chemotherapy with 12 cycles of modified FOLFOX, completed in January 2017. He required dose reductions in the oxaliplatin due to neuropathy, and it was omitted beginning with cycle 5. He otherwise tolerated the treatment well. He has since then been followed on observation/expectant management. He had 2 adenomatous polyps on his surveillance colonoscopy in March 2017, and there also was evidence of some stricture at the anastomotic site. He underwent a dilatation procedure in June 2017. During follow-up there was a gradual slight increase in his CEA level, but it had subsequently stabilized and thus far there has been no evidence of recurrence of the colon cancer by clinical evaluation or by surveillance CT scans. He was diagnosed with COVID-19 virus infection in April 2020, but he has now recovered. He has otherwise been doing well clinically. He remains on observation/expectant management for colon cancer. He will be scheduled for a follow-up visit in 6 months. Signed By: Eric Barrett M.D. <<Signature on File>>
== END 2020-09-01 08:11 | disposition home or self-care (01) ==
LOC: ONCMED 08:11
PROVIDERS: PCP Family Medicine; Visit Provider Internal Medicine Medical Oncology
DX: Z08 Encounter for follow-up examination after completed treatment for malignant neoplasm (principal); Z85.038 Personal history of other malignant neoplasm of large intestine; Z86.16 Personal history of COVID-19; Z92.21 Personal history of antineoplastic chemotherapy
CPT/HCPCS: 36415; 80053; 82378; 85025; G0463

== ENCOUNTER 2021-02-23 10:03 | Outpatient (CLI) | payer BC, SELFPAY ==
--- NOTE | 2021-02-23 10:17 | CT_ITS ---
WS: [id number] CT CHEST, ABDOMEN AND PELVIS WITH CONTRAST. HISTORY: COLON CANCER TECHNIQUE: Contiguous 5 mm axial imaging performed through the chest, abdomen and pelvis with IV cont rast, oral contrast has been provided. Coronal and sagittal reformats chest. Coronal and sagittal ref ormats through the abdomen and pelvis. All CT scans at [facility] use at least one of the se dose optimization techniques: automated exposure control; mA and/or kV adjustment per patient size (includes targeted exams where dose is matched to clinical indication); or iterative reconstruction. CONTRAST: Omnipaque 300; 95 mL IV. DLP: 2433.7 mGy.cm COMPARISON: 01/21/2020 and 01/22/[address]: No pulmonary mass, nodule or pneumonia. Mild enlargement of the heart. Very slight atherosc lerosis aorta. Normal size pulmonary artery. No mediastinal or hilar adenopathy. Small hiatal hernia. Abdomen CT: Mild hepatic steatosis. Normal portal vein. Gallbladder is mildly distended and contains numerous stones. No pericholecystic fluid. Normal pancreas and spleen. Normal RIGHT adrenal gland. Fa t-containing nodule in the LEFT adrenal gland measures 11 mm consistent with an adrenal myelolipoma. There is an additional larger fat-containing nodule in the LEFT adrenal gland measuring 3.6 cm consis tent with an adrenal myelolipoma. There are numerous cysts and parapelvic cysts within each kidney. N o hydronephrosis. No solid enhancing mass is identified. Mild atherosclerosis aorta. No mesenteric or retroperitoneal lymph nodes. No ascites. Ventral abdominal wall hernia contains fat. Rectosigmoid anastomosis is similar to prior studies. No recurrent mass or stenosis. There is no obst ruction at the anastomosis. No adjacent adenopathy or ascites. The appendix is normal. Pelvic CT: Normal urinary bladder. Prostate gland is normal size. No adenopathy or fluid. No osteobla stic or osteolytic bone disease. Thoracic and lumbar spondylosis. CT/CT chest abd pel w con* IMPRESSION: 1. Stable postoperative changes at the rectosigmoid junction. No recurrent mas s or adenopathy. 2. Cholelithiasis without acute cholecystitis. 3. LEFT adrenal gland myelolipoma's. 4. Numerous parapelvic cysts. Bilateral parapelvic cysts with no solid mass id entified. 5. No pulmonary mass or nodule.
[2021-02-23 11:17] LABS: Blood Urea Nitrogen 20 mg/dL (8-23); Glomerular Filtration Rate 68.3 mL/min (90-130)
== END 2021-02-23 10:04 | disposition home or self-care (01) ==
PROVIDERS: PCP Family Medicine; Visit Provider Internal Medicine Medical Oncology
DX: C18.7 Malignant neoplasm of sigmoid colon (principal); K80.20 Calculus of gallbladder without cholecystitis without obstruction; D17.79 Benign lipomatous neoplasm of other sites
CPT/HCPCS: 36415; 71260; 74177; 82565; 84520

== ENCOUNTER 2021-03-09 12:04 | Outpatient (CLI) | payer BC, SELFPAY ==
[2021-03-09 13:21] LABS: Basophils % 0.3 %; Eosinophils # 0.1 10^3/uL (0.0-0.8); Eosinophils % 1.8 %; Hematocrit 45.4 % (42.0-52.0); Hemoglobin 14.2 g/dL (11.7-16.6); Lymphocytes # 1.6 10^3/uL (0.8-4.8); Lymphocytes % 22.8 %; Mean Corpuscular HGB Conc 31.3 g/dL (30.0-36.0); Mean Corpuscular Hemoglobin 28.7 pg (28.0-34.0); Mean Corpuscular Volume 91.7 fL (80-94); Mean Platelet Volume 10.2 fL (7.4-10.4); Monocytes # 0.7 10^3/uL (0.2-0.9); Monocytes % 9.7 %; Neutrophils # 4.44 10^3/uL (1.8-7.7); Nucleated Red Blood Cells % 0 %; Platelet Count 226 10^3/cmm (130-400); Red Blood Count 4.95 10^6/uL (4.1-5.3); Red Cell Distribution Width 13.5 % (12.1-15.1); White Blood Count 6.8 10^3/uL (4.0-10.0)
[2021-03-09 13:25] LABS: Carcinoembryonic Antigen 8.1 ng/mL (0.0-4.7)
[2021-03-09 13:36] LABS: Alanine Aminotransferase 36 U/L (0-41); Albumin Level 4.1 g/dL (3.5-5.2); Alkaline Phosphatase 49 IU/L (40-130); Anion Gap 12.2 (5-19); Aspartate Amino Transferase 20 U/L (0-40); Blood Urea Nitrogen 18 mg/dL (8-23); Calcium 8.6 mg/dL (8.5-10.5); Carbon Dioxide 28 mmol/L (22-29); Chloride 107 mmol/L (98-107); Globulin 2.1 g/dL (1.3-4.6); Glucose 95 mg/dL (65-115); Osmolality Calculated 298 mOsm/kg (285-295); Potassium 4.2 mmol/L (3.5-5.1); Sodium 143 mmol/L (136-145); Total Bilirubin 0.8 mg/dL (0.15-1.2); Total Protein 6.2 g/dL (6.6-8.7)
--- NOTE | 2021-03-13 13:53 | ONC FU_ITS ---
Dr. Barrett Patient Follow-Up Note Patient: Bk Tamayo Unit #: [id number]: 1960 Dicatated By: Eric Barrett M.D.Date of Visit:Mar 09, 2021 Onc Med Follow-up/Prog Note Chief Complaint: Colon cancer. 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 On 06/22/2016 he presented to the emergency room with back pain and constipation. He hadn't been aware of any blood in the stool or other associated GI symptoms. He had perhaps noticed a little decline in his energy/activity tolerance, and he did have an unexplained weight loss in the range of [address] of the abdomen/pelvis showed abnormal appearance of the sigmoid colon with wall thickening and shouldering. There was mild stranding of the surrounding fat and there are lymph nodes noted in the surrounding fat. The findings were suspicious for colon cancer. He underwent colonoscopy on 06/24/2016. It showed a partially obstructing, large size, fungating, malignant appearing mass in the sigmoid colon. It was circumferential and measured 7 x 5 cm. The scope was not able to be advanced beyond the tumor. On 06/25/2016 he underwent laparoscopic converted to open sigmoid colectomy with colorectal anastomosis. The procedure also included open repair of umbilical hernia. Pathology showed low-grade (well to moderately differentiated) infiltrating adenocarcinoma with penetration through the muscularis propria into the pericolonic fat. The tumor measured 8.0 x 5.5 x 2.7 cm. It did show evidence of lymphovascular space invasion. The margins were free. There was involvement in 6 of 14 pericolonic lymph nodes. His baseline CEA was significantly elevated at 74.0 ng/mL. On 07/28/2016 he underwent placement of Port-A-Cath venous access device in preparation for chemotherapy. Adjuvant chemotherapy with modified FOLFOX began on 08/18/2016. CEA 3.0 ng/mL. He received cycle 2 on 08/31/16. He did have significant nausea with both cycles of treatment, though he had no associated vomiting. He also experience some decrease in energy, and he felt very draggy . He had some shortness of breath with exertion. He had diarrhea with the 2nd cycle, but it lasted only about one day. 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 It was significant enough that he was not able to drink any cold liquids. Those symptoms persisted up until a few days prior to cycle 3 on 09/14/2016, at which point the oxaliplatin dosage was reduced one level. With cycle 4, on 09/28/2016, he had a further reduction in the oxaliplatin dosage for peristent neuropathy. Beginning wt cycle 5, on , the oxaliplatin was omitted. He then continued treatment with minimal toxicity. He began his 12th cycle of chemotherapy on 01/18/2017. Surveillance colonoscopy in 03/10/2017 showed small polyps in the descending and ascending colon. There was narrowing at the anastomotic site. Pathology on the descending colon polyp was tubulovillous adenoma. The ascending colon showed adenomatous polyp. Surveillance CT scans of the chest, abdomen, and pelvis on 06/27/2017 showed no evidence of recurrent or metastatic disease. 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 CT abdomen/pelvis on 12/21/2017 show evidence of prior sigmoidectomy with stable anastomotic site and no evidence of recurrent or metastatic disease. His other medical illnesses have been limited to hypertension and nephrolithiasis. He is a nonsmoker. He had chewed tobacco for 7 or 8 years, but he quit more than 25 years ago. INTERIM HISTORY: As of 07/24/2018 there was an increase in the CEA level to 5.1 ng/mL compared to 3.0 ng/mL on 01/23/2018. His CT scans at that time showed stable sigmoidectomy with no evidence for recurrent mass or adenopathy. There was stable hepatic steatosis and bilateral parapelvic cysts. There was no evidence of metastatic disease to the chest, abdomen, or pelvis. He continued on observation/expectant management. His repeat CEA on 09/02/2018 was minimally higher at 5.4 ng/mL. As of 01/22/2019 his CEA had further increased to 6.7 ng/mL. CT scans of the chest, abdomen, and pelvis showed no evidence of a neoplastic process in the chest and no evidence of recurrent or metastatic neoplasm in the abdomen/pelvis. 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 His repeat CEA on 04/23/2019 was stable at 6.3 ng/mL. His surveillance colonoscopy on 06/04/2019 showed stricture at the colorectal anastomosis. There were no other abnormalities noted. He was recommended to have colonoscopy again in one year. His CT scans on 01/21/2020 showed no evidence of recurrent or metastatic disease in the chest, abdomen, or pelvis. He continued on observation/expectant management. His surveillance CT scans on 02/23/2021 showed a fat-containing nodule measuring 11 mm and an additional larger fat-containing nodule in the left adrenal gland measuring 3.6 cm, both of which appeared consistent with adrenal myelolipoma. There was no evidence of recurrent or metastatic disease. He is seen today for a scheduled visit. He has been feeling good generally. He does complain that his energy has been a little, but he has normal activity. He has good appetite. He has no fever or night sweats. He has some shortness of breath with activity. He does not complain of cough, and he has not had chest pain. He has a little bit of acid reflux. He has no other GI or complaints. He says his joints are little achy. He has had some headaches. He complains that his balance is not too good. He has no numbness/paresthesia or other focal neurologic symptoms. Medications: Acetaminophen ER 1 (650 mg) Tablet, controlled release Oral PRN, HYDROcodone-Acetaminophen 1 Tablet (of 5-325 mg) Oral PRN Allergies: No Known Allergies. Vital Signs: Performed on Mar 09, 2021 15:56 Height - 75.00 in Weight - 278.4 lbs (HIGH) BSA - 2.53 sq.m BMI - 34.80 (HIGH) Temperature - 98.6 F Pulse - 81 /min Respiration - 18 /min BP - 157/88 mm(hg) (HIGH) O2 Sat - 97 % Pain - 0 Fatigue - 3 Physical Examination: Constitutional - He looks good generally, Eyes - Sclerae nonicteric. Conjunctivae clear, ENMT - No lesions noted in the oral cavity, Hematologic/Lymphatic - No cervical, clavicular, or axillary adenopathy, Respiratory - Lungs are clear with good air movement bilaterally, Cardiovascular - Heart rhythm is regular. There is no murmur, gallop, or rub noted, Abdomen - Soft. Liver and spleen are not enlarged. There is no abdominal mass or ascites noted and there is no inguinal adenopathy, Extremities - No edema, Neurologic - No focal neurologic deficits noted. Lab/Imaging: Test performed on Mar 09, 2021 12:20 Sodium 143 mmol/L Potassium 4.2 mmol/L Chloride 107 mmol/L CO2 28 mmol/L Anion Gap 12.2 BUN 18 mg/dL Creatinine 0.7 mg/dL Cr Clearance (Est) 200.45 mL/min eGFR 115.0 mL/min Glucose 95 mg/dL Osmolality - Calculated 298 mOsm/kg Calcium 8.6 mg/dL Protein, Total 6.2 g/dL Albumin 4.1 g/dL Globulin 2.1 g/dL Bilirubin, Total 0.8 mg/dL ALT (SGPT) 36 U/L AST (SGOT) 20 U/L Alkaline Phosphatase 49 IU/L WBC 6.8 10 3/uL RBC 4.95 10 6/uL HGB 14.2 g/dL HCT 45.4 % MCV 91.7 fL MCH 28.7 pg MCHC 31.3 g/dL RDW 13.5 % Platelet Count 226 10 3/cmm MPV 10.2 fL Neutrophils 4.44 10 3/uL Lymphocytes 1.6 10 3/uL Monocytes 0.7 10 3/uL Eosinophils 0.1 10 3/uL Basophils 0.0 10 3/uL Neutrophil % 65.0 % Lymphocyte % 22.8 % Monocyte % 9.7 % Eosinophil % 1.8 % Basophils % 0.3 % NRBC % 0 % CEA 8.1 ng/mL Problem List: 1. 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 He underwent laparoscopic converted to open sigmoid colon resection on 06/25/2016. 2. Hypertension. 3. Nephrolithiasis. 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 He underwent laparoscopic converted to open sigmoid colon resection on 06/25/2016. He was given adjuvant chemotherapy with 12 cycles of modified FOLFOX, completed in January 2017. He required dose reductions in the oxaliplatin due to neuropathy, and it was omitted beginning with cycle 5. He otherwise tolerated the treatment well. He has since then been followed on observation/expectant management. He had 2 adenomatous polyps on his surveillance colonoscopy in March 2017, and there also was evidence of some stricture at the anastomotic site. He underwent a dilatation procedure in June 2017. During follow-up there was a gradual slight increase in his CEA level, but it had subsequently stabilized and thus far there has been no evidence of recurrence of the colon cancer by clinical evaluation or by surveillance CT scans. He was diagnosed with COVID-19 virus infection in April 2020, but he had uneventful recovery. He has otherwise been doing well clinically. His CEA level remains mildly elevated, but without evidence of metastatic disease by CT scan. As such, he continues on expectant management. I will see him again in 6 months. Signed By: Eric Barrett M.D. <<Signature on File>>
== END 2021-03-09 12:05 | disposition home or self-care (01) ==
LOC: ONCMED 12:05
PROVIDERS: PCP Family Medicine; Visit Provider Internal Medicine Medical Oncology
DX: Z08 Encounter for follow-up examination after completed treatment for malignant neoplasm (principal); Z85.038 Personal history of other malignant neoplasm of large intestine; I10 Essential (primary) hypertension; N20.0 Calculus of kidney; Z79.899 Other long term (current) drug therapy; Z92.21 Personal history of antineoplastic chemotherapy
CPT/HCPCS: 36415; 80053; 82378; 85025; G0463

== ENCOUNTER 2021-09-21 11:10 | Outpatient (CLI) | payer BC, SELFPAY ==
[2021-09-21 12:02] LABS: Basophils % 0.5 %; Eosinophils # 0.1 10^3/uL (0.0-0.8); Eosinophils % 1.5 %; Hematocrit 45.5 % (42.0-52.0); Hemoglobin 14.4 g/dL (11.7-16.6); Lymphocytes # 1.8 10^3/uL (0.8-4.8); Lymphocytes % 24.6 %; Mean Corpuscular HGB Conc 31.6 g/dL (30.0-36.0); Mean Corpuscular Hemoglobin 28.7 pg (28.0-34.0); Mean Corpuscular Volume 90.6 fl (80-94); Mean Platelet Volume 9.9 fL (7.4-10.4); Monocytes # 0.7 10^3/uL (0.2-0.9); Neutrophils # 4.59 10^3/uL (1.8-7.7); Neutrophils % 63.1 %; Nucleated Red Blood Cells % 0 %; Platelet Count 236 10^3/cmm (130-400); Red Blood Count 5.02 10^6/uL (4.1-5.3); Red Cell Distribution Width 14.1 % (12.1-15.1); White Blood Count 7.3 10^3/uL (4.0-10.0)
[2021-09-21 12:43] LABS: Carcinoembryonic Antigen 10.8 ng/mL (0.0-4.7)
[2021-09-21 12:54] LABS: Alanine Aminotransferase 17 U/L (0-41); Albumin Level 4.2 g/dL (3.5-5.2); Alkaline Phosphatase 46 IU/L (40-130); Blood Urea Nitrogen 14 mg/dL (8-23); Calcium 8.5 mg/dL (8.5-10.5); Carbon Dioxide 24 mmol/L (22-29); Chloride 107 mmol/L (98-107); Globulin 2.2 g/dL (1.3-4.6); Glomerular Filtration Rate 114.6 mL/min (90-130); Glucose 106 mg/dL (65-115); Osmolality Calculated 293 mOsm/kg (285-295); Sodium 141 mmol/L (136-145); Total Bilirubin 0.7 mg/dL (0.15-1.2); Total Protein 6.4 g/dL (6.6-8.7)
[2021-09-21 12:57] LABS: Anion Gap 14.2 (5-19); Aspartate Amino Transferase 15 U/L (0-40); Potassium 4.2 mmol/L (3.5-5.1)
--- NOTE | 2021-09-22 19:30 | ONC FU_ITS ---
Dr. Barrett Patient Follow-Up Note Patient: Bk Tamayo Unit #: [id number]: 1960 Dicatated By: Eric Barrett M.D.Date of Visit:Sep 21, 2021 Onc Med Follow-up/Prog Note Chief Complaint: Colon cancer. 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 On 06/22/2016 he presented to the emergency room with back pain and constipation. He hadn't been aware of any blood in the stool or other associated GI symptoms. He had perhaps noticed a little decline in his energy/activity tolerance, and he did have an unexplained weight loss in the range of [address] of the abdomen/pelvis showed abnormal appearance of the sigmoid colon with wall thickening and shouldering. There was mild stranding of the surrounding fat and there are lymph nodes noted in the surrounding fat. The findings were suspicious for colon cancer. He underwent colonoscopy on 06/24/2016. It showed a partially obstructing, large size, fungating, malignant appearing mass in the sigmoid colon. It was circumferential and measured 7 x 5 cm. The scope was not able to be advanced beyond the tumor. On 06/25/2016 he underwent laparoscopic converted to open sigmoid colectomy with colorectal anastomosis. The procedure also included open repair of umbilical hernia. Pathology showed low-grade (well to moderately differentiated) infiltrating adenocarcinoma with penetration through the muscularis propria into the pericolonic fat. The tumor measured 8.0 x 5.5 x 2.7 cm. It did show evidence of lymphovascular space invasion. The margins were free. There was involvement in 6 of 14 pericolonic lymph nodes. His baseline CEA was significantly elevated at 74.0 ng/mL. On 07/28/2016 he underwent placement of Port-A-Cath venous access device in preparation for chemotherapy. Adjuvant chemotherapy with modified FOLFOX began on 08/18/2016. CEA 3.0 ng/mL. He received cycle 2 on 08/31/16. He did have significant nausea with both cycles of treatment, though he had no associated vomiting. He also experience some decrease in energy, and he felt very draggy . He had some shortness of breath with exertion. He had diarrhea with the 2nd cycle, but it lasted only about one day. 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 It was significant enough that he was not able to drink any cold liquids. Those symptoms persisted up until a few days prior to cycle 3 on 09/14/2016, at which point the oxaliplatin dosage was reduced one level. With cycle 4, on 09/28/2016, he had a further reduction in the oxaliplatin dosage for peristent neuropathy. Beginning wt cycle 5, on , the oxaliplatin was omitted. He then continued treatment with minimal toxicity. He began his 12th cycle of chemotherapy on 01/18/2017. Surveillance colonoscopy in 03/10/2017 showed small polyps in the descending and ascending colon. There was narrowing at the anastomotic site. Pathology on the descending colon polyp was tubulovillous adenoma. The ascending colon showed adenomatous polyp. Surveillance CT scans of the chest, abdomen, and pelvis on 06/27/2017 showed no evidence of recurrent or metastatic disease. 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 During subsequent follow-up his CEA level remained slightly elevated. As of April 2019 there had been no evidence of recurrence of the colon cancer by surveillance CT scan. His surveillance colonoscopy in May 2019 showed evidence of stricture at the colorectal anastomosis, but there were no other abnormalities noted. He continued expectant management. His other medical illnesses include hypertension and nephrolithiasis. He had COVID-19 virus infection in May 2020. He is a nonsmoker. He had chewed tobacco for 7 or 8 years, but he quit more than 25 years ago. INTERIM HISTORY: His surveillance CT scans on 02/23/2021 showed a fat-containing nodule measuring 11 mm and an additional larger fat-containing nodule in the left adrenal gland measuring 3.6 cm, both of which appeared consistent with adrenal myelolipoma. There was no evidence of recurrent or metastatic disease. As of his follow-up visit on 03/09/2021 he appeared stable clinically, but there have been a further increase in his CEA level to 8.1 ng/mL. He is seen for a follow-up visit. He has been feeling a little draggy ever since his COVID-19 virus infection in May 2020. He does have normal activity, though. His ECOG score is 0. He has good appetite, and he has gained weight. He has not had fever or night sweats. He has had trouble with his eyes, mainly a dark spot in his visual field. He has not had sore mouth or throat, and he has no difficulty swallowing. He does not complain of cough. He has some mild exertional dyspnea. He has not been having resting dyspnea or chest pain. He occasionally has nausea. Bowel function is somewhat variable, but adequate. He has no complaints. He has no significant joint or bone pain. He sometimes has headache, and he complains that his balance is not good. He has no focal neurologic symptoms. Medications: Acetaminophen ER 1 (650 mg) Tablet, controlled release Oral PRN, HYDROcodone-Acetaminophen 1 Tablet (of 5-325 mg) Oral PRN Allergies: No Known Allergies. Vital Signs: Performed on Sep 21, 2021 13:21 Height - 75.00 in BP - 188/105 mm(hg) (HIGH) Performed on Sep 21, 2021 13:21 Height - 75.00 in Weight - 280.0 lbs (HIGH) BSA - 2.53 sq.m BMI - 35.00 (HIGH) Temperature - 98.0 F (LOW) Pulse - 72 /min Respiration - 16 /min BP - 170/104 mm(hg) (HIGH) O2 Sat - 96 % Pain - 0 Fatigue - 7 Physical Examination: Constitutional - He looks good generally, Eyes - Sclerae nonicteric. Conjunctivae clear, ENMT - No lesions noted in the oral cavity, Hematologic/Lymphatic - No cervical, clavicular, or axillary adenopathy, Respiratory - Lungs are clear with good air movement bilaterally, Cardiovascular - Heart rhythm is regular. There is no murmur, gallop, or rub noted, Abdomen - Soft. Liver and spleen are not enlarged. There is no abdominal mass or ascites noted and there is no inguinal adenopathy, Extremities - No edema, Neurologic - No focal neurologic deficits noted. Lab/Imaging: Test performed on Sep 21, 2021 11:30 Sodium 141 mmol/L Potassium 4.2 mmol/L Chloride 107 mmol/L CO2 24 mmol/L Anion Gap 14.2 BUN 14 mg/dL Creatinine 0.7 mg/dL Cr Clearance (Est) 199.08 mL/min eGFR 114.6 mL/min Glucose 106 mg/dL Osmolality - Calculated 293 mOsm/kg Calcium 8.5 mg/dL Protein, Total 6.4 g/dL Albumin 4.2 g/dL Globulin 2.2 g/dL Bilirubin, Total 0.7 mg/dL ALT (SGPT) 17 U/L AST (SGOT) 15 U/L Alkaline Phosphatase 46 IU/L WBC 7.3 10 3/uL RBC 5.02 10 6/uL HGB 14.4 g/dL HCT 45.5 % MCV 90.6 fl MCH 28.7 pg MCHC 31.6 g/dL RDW 14.1 % Platelet Count 236 10 3/cmm MPV 9.9 fL Neutrophils 4.59 10 3/uL Lymphocytes 1.8 10 3/uL Monocytes 0.7 10 3/uL Eosinophils 0.1 10 3/uL Basophils 0.0 10 3/uL Neutrophil % 63.1 % Lymphocyte % 24.6 % Monocyte % 10.0 % Eosinophil % 1.5 % Basophils % 0.5 % NRBC % 0 % CEA 10.8 ng/mL Problem List: 1. 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 2. Hypertension. 3. Nephrolithiasis. 4. History of COVID-19 virus infection in May 2020. 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 He underwent laparoscopic converted to open sigmoid colon resection on 06/25/2016. He was given adjuvant chemotherapy with 12 cycles of modified FOLFOX, completed in January 2017. He required dose reductions in the oxaliplatin due to neuropathy, and it was omitted beginning with cycle 5. He otherwise tolerated the treatment well. He was then followed on observation/expectant management. He had 2 adenomatous polyps on his surveillance colonoscopy in March 2017, and there also was evidence of some stricture at the anastomotic site. He underwent a dilatation procedure in June 2017. During follow-up there was a gradual slight increase in his CEA level, but it had subsequently stabilized. As of April 2019 there was no evidence of recurrence of the colon cancer by surveillance CT scan. His surveillance colonoscopy in May 2019 continue to show stricture at the anastomotic site. There are no other abnormalities noted. He continued expectant management. As of March 2021 there was an increase in his CEA level to 8.1 ng/mL, but there was no evidence of recurrent or metastatic disease by CT scan, and he appeared stable clinically. There is now been further increase in the CEA level to 10.8 ng/mL. As such, he will be scheduled for restaging CT scans of the chest, abdomen, and pelvis. If those are negative, I will have him see Dr. Wilson for surveillance colonoscopy. Signed By: Eric Barrett M.D. <<Signature on File>>
== END 2021-09-21 11:11 | disposition home or self-care (01) ==
LOC: ONCMED 11:15
PROVIDERS: PCP Family Medicine; Visit Provider Internal Medicine Medical Oncology
DX: Z08 Encounter for follow-up examination after completed treatment for malignant neoplasm (principal); Z85.038 Personal history of other malignant neoplasm of large intestine; I10 Essential (primary) hypertension; N20.0 Calculus of kidney; Z86.16 Personal history of COVID-19; Z79.899 Other long term (current) drug therapy; Z92.21 Personal history of antineoplastic chemotherapy
CPT/HCPCS: 36415; 80053; 82378; 85025; 99214

== ENCOUNTER 2021-10-01 10:40 | Outpatient (CLI) | payer BC, SELFPAY ==
--- NOTE | 2021-10-01 10:44 | CT_ITS ---
WS: [id number] CT CHEST, ABDOMEN AND PELVIS WITH CONTRAST HISTORY: COLON CANCER TECHNIQUE: Contiguous 5 mm axial imaging performed through the chest, abdomen and pelvis with IV cont rast, oral contrast has been provided. Coronal and sagittal reformats chest. Coronal and sagittal ref ormats through the abdomen and pelvis. All CT scans at [facility] use at least one of these d ose optimization techniques: automated exposure control; mA and/or kV adjustment per patient size (in cludes targeted exams where dose is matched to clinical indication); or iterative reconstruction. CONTRAST: Omnipaque 300; 95 mL IV. DLP: 2703.33 mGy.cm COMPARISON: 02/23/2021, 01/20/[address]: There is a very small 7.6 mm slightly lobulated nodule at the medial LEFT lung base. In hin dsight probably present on the prior examination. No additional pulmonary nodules are identified. No pneumonia. Normal vasculature. Pulmonary artery size is normal. Normal aorta. Normal heart. No sig nificant mediastinal or hilar adenopathy. Abdomen CT: No metastatic disease within the liver. Gallbladder is moderately enlarged with numerous stones. No adjacent inflammation. No common bile duct dilatation. Normal spleen and pancreas. Stable LEFT adrenomyolipoma's. There are probably 2 adrenal adenoma mild lipomas on the LEFT. RIGHT adrenal gland is negative. Mild atherosclerosis aorta with no dilatation or aneurysm. Numerous bilateral parapelvic cysts are identified. These have been previously described. No renal ob struction. Ventral abdominal wall hernia. There is a loop of small bowel extending into the hernia with no obstr uction. Stomach is nondistended. No small bowel dilatation. There are a few scattered diverticula in the distal colon. Sutures at the rectosigmoid junction are reidentified. There is a new area of mild stricture and increased soft tissue just proximal to the suture line. No adjacent lymph nodes. Pelvic CT: No free fluid in the pelvis. Urinary bladder is nondistended. There is a single sclerotic focus measuring 5 mm in the posterior LEFT ilium. No change since 02/24/20 21 but not seen on the study from 01/22/2019. Due to its small size this may be due to volume averagin g. No increase in size since the most recent exam. There are a few additional sclerotic foci within t he spine. New sclerotic foci along the superior endplate of T12. CT/CT chest abd pel w con* IMPRESSION: 1. There are several indeterminate features suspicious for recurrent colon can cer. 2. New sclerotic foci within T12 x 2 and the LEFT ilium. Very small but could represent early metastatic lesions. 3. Medial LEFT lower lobe 7.6 mm nodule may be an early metastatic site. This was probably present on the most recent exam but very slightly increased in siz e and now more evident. 4. New mild narrowing and increased soft tissue just superior to the rectosigm oid sutures. No additional adenopathy. Consider follow-up colonoscopy. PET/CT i maging also may be helpful. 5. Extensive cholelithiasis without acute cholecystitis. 6. Known bilateral parapelvic cysts.
[2021-10-01] MEDS: iohexol 300 mg/mL 100 mL Btl IV (12:41)
[2021-10-01] MEDS: iohexol 300 mg/mL 50 mL Btl PO (12:42)
== END 2021-10-01 10:41 | disposition home or self-care (01) ==
LOC: RAD 10:41
PROVIDERS: PCP Family Medicine; Visit Provider Internal Medicine Medical Oncology
DX: C18.7 Malignant neoplasm of sigmoid colon (principal); K80.20 Calculus of gallbladder without cholecystitis without obstruction; R91.1 Solitary pulmonary nodule
CPT/HCPCS: 71260; 74177

== ENCOUNTER 2021-11-16 09:17 | Outpatient (CLI) | payer BC, SELFPAY ==
[2021-11-16 09:46] LABS: Basophils % 0.6 %; Eosinophils # 0.1 10^3/uL (0.0-0.8); Eosinophils % 1.8 %; Hematocrit 46.2 % (42.0-52.0); Hemoglobin 14.7 g/dL (11.7-16.6); Lymphocytes # 1.6 10^3/uL (0.8-4.8); Lymphocytes % 26.1 %; Mean Corpuscular HGB Conc 31.8 g/dL (30.0-36.0); Mean Corpuscular Hemoglobin 28.6 pg (28.0-34.0); Mean Corpuscular Volume 89.9 fl (80-94); Mean Platelet Volume 9.4 fL (7.4-10.4); Monocytes # 0.7 10^3/uL (0.2-0.9); Monocytes % 10.9 %; Neutrophils # 3.72 10^3/uL (1.8-7.7); Neutrophils % 60.3 %; Nucleated Red Blood Cells % 0 %; Platelet Count 234 10^3/cmm (130-400); Red Blood Count 5.14 10^6/uL (4.1-5.3); White Blood Count 6.2 10^3/uL (4.0-10.0)
[2021-11-16 11:10] LABS: Carcinoembryonic Antigen 10.9 ng/mL (0.0-4.7)
[2021-11-16 11:21] LABS: Alanine Aminotransferase 18 U/L (0-41); Albumin Level 4.2 g/dL (3.5-5.2); Alkaline Phosphatase 44 IU/L (40-130); Blood Urea Nitrogen 15 mg/dL (8-23); Calcium 9.2 mg/dL (8.5-10.5); Carbon Dioxide 24 mmol/L (22-29); Chloride 108 mmol/L (98-107); Globulin 1.8 g/dL (1.3-4.6); Glomerular Filtration Rate 114.6 mL/min (90-130); Glucose 112 mg/dL (65-115); Osmolality Calculated 294 mOsm/kg (285-295); Sodium 141 mmol/L (136-145); Total Bilirubin 0.6 mg/dL (0.15-1.2)
[2021-11-16 11:24] LABS: Anion Gap 13.3 (5-19); Aspartate Amino Transferase 16 U/L (0-40); Potassium 4.3 mmol/L (3.5-5.1)
== END 2021-11-16 09:18 | disposition home or self-care (01) ==
PROVIDERS: PCP Family Medicine; Visit Provider Internal Medicine Medical Oncology
DX: C18.7 Malignant neoplasm of sigmoid colon (principal); G62.0 Drug-induced polyneuropathy; T45.1X5A Adverse effect of antineoplastic and immunosuppressive drugs, initial encounter; Z79.899 Other long term (current) drug therapy
CPT/HCPCS: 36415; 80053; 82378; 85025

== ENCOUNTER 2021-12-04 05:51 | Day surgery (SDC) | payer BC, SELFPAY ==
[2021-12-02 10:33] VITALS: BMI 34.9
[2021-12-04 06:16] VITALS: BP 159/128; PULSE 92; RESP 18; TEMP 36.1; O2SAT 98
[2021-12-04] MEDS: sodium chloride 0.9% 1,000 ML 30 ML IV (06:24)
--- NOTE | 2021-12-04 06:27 | W.PM.OPSUD ---
Surgery/Procedure H&P Update DATE OF PROCEDURE: December 04, 2021 DATE H&P PERFORMED: 11/16/21 H&P UPDATE INFORMATION: I have reviewed H&P completed within last 30 days, I have examined patient prior to procedure and No changes to prior documentation PREOP DIAGNOSIS: Colon cancer PRIMARY INDICATION FOR PROCEDURE: The same PLANNED PROCEDURE: Operation Date: 12/04/21 07:00 Proposed Procedures p Colonoscopy With Dilation 60068/87388/z85.038(Not Applicable) - Eliud Wilson MD
--- NOTE | 2021-12-04 06:44 | ANES.PREANE2 ---
Pre-Anesthetic Assessment Height/Weight: Height 1.91 m Weight 127.006 kg Temp Pulse Resp BP Pulse Ox 97.0 F L 92 18 159/128 98 12/04/21 06:16 12/04/21 06:16 12/04/21 06:16 12/04/21 06:16 12/04/21 06:16 Preop Diagnosis: Colon cancer Operation Date: 12/04/21 07:00 Proposed Procedures p Colonoscopy With Dilation 16480/61886/z85.038(Not Applicable) - Eliud Wilson MD Was Beta Samreen taken within 24 hours: N/A Was Clonidine taken within 24 hours: N/A Last intake: Intake Last Liquid Date 12/03/21 Last Liquid Time 22:30 Last Solid Date 12/02/21 Last Solid Time 22:00 Social No alcohol and No tobacco Exam alert, oriented x 3, clear to auscultation bilaterally and regular rate & rhythm Airway Submandibular: within normal limits Cervical ROM: within normal limits Mallampati: Class II Dentition: full History/ROS No significant history except as noted and No significant complaints Pulmonary None reported CV/HEM None reported None reported Hepatic None reported GI None reported Metabolic Morbid Obesity Musc/skel Weakness Neuropsych None reported Anesthetic Plan ASA status: 2 Medications/Allergies Home Medications Medication Instructions Recorded Confirmed Last Taken Type No Known Home Medications 11/16/21 12/04/21 Unknown History Allergies Allergy/AdvReac Type Severity Reaction Status Date / Time No Known Allergies Allergy Verified 12/04/21 06:11 Current Medications Generic Name Dose Route Start Last Admin Trade Name Freq PRN Reason Stop Dose Admin Sodium Chloride 1,000 mls @ 30 mls/hr 12/04/21 06:15 12/04/21 06:24 Sodium Chloride 0.9% IV 30 mls/hr .Q24H PINKY Administration PFSH Anesthesia Social History Smoking and tobacco status: never smoked Alcohol intake: never History of recent travel: No Current gender identity: Male Data Anesthesia Cardiac Studies: No Data to Display
--- NOTE | 2021-12-04 07:32 | SUR.OPER ---
clip placed at the cecal polyp bx site
[2021-12-04 07:49] VITALS: BP 157/97; PULSE 71; RESP 20; TEMP 36.1; O2SAT 97
[2021-12-04 08:06] VITALS: BP 137/85; PULSE 73; RESP 18; O2SAT 100
--- NOTE | 2021-12-04 15:55 | ANE.PACU2 ---
Inpatient post-anesthesia follow up: Airway intact: Yes Vital signs: Temperature 97 F Pulse Rate 73 Respiratory Rate 18 Blood Pressure 137/85 Pulse Oximetry 100 Oxygen Delivery Me thod Room Air Oxygen Flow Rate Fraction of Inspir ed Oxygen Hydration adequate: Yes Nausea and vomiting: No Pain level: 1 Mental status: Baseline
== END 2021-12-04 08:20 | disposition home or self-care (01) ==
PROVIDERS: PCP Family Medicine; Visit Provider Surgery
PROC: 0D7E8ZZ Dilation of Large Intestine, Via Natural or Artificial Opening Endoscopic (ICD-10-PCS; principal; 2021-12-04 07:00)
DX: Z85.038 Personal history of other malignant neoplasm of large intestine (principal); K56.699 Other intestinal obstruction unspecified as to partial versus complete obstruction; K57.30 Diverticulosis of large intestine without perforation or abscess without bleeding; D12.0 Benign neoplasm of cecum; E66.01 Morbid (severe) obesity due to excess calories; Z68.35 Body mass index [BMI] 35.0-35.9, adult
CPT/HCPCS: 45380; 45385; 88305; J2704; J3490; J7030

== ENCOUNTER 2022-02-25 13:30 | Oncology outpatient (recurring) (ONCR) | payer BC, SELFPAY ==
--- NOTE | 2022-02-22 14:11 | CT_ITS ---
WS: [id number] CT CHEST, ABDOMEN AND PELVIS WITH CONTRAST HISTORY: COLON CANCER TECHNIQUE: Contiguous 5 mm axial imaging performed through the chest, abdomen and pelvis with IV cont rast, oral contrast has been provided. Coronal and sagittal reformats chest. Coronal and sagittal ref ormats through the abdomen and pelvis. All CT scans at [facility] use at least one of these d ose optimization techniques: automated exposure control; mA and/or kV adjustment per patient size (in cludes targeted exams where dose is matched to clinical indication); or iterative reconstruction. CONTRAST: Omnipaque 350; 95 mL IV. DLP: 2056.28 mGy.cm COMPARISON: 10/01/2021 and 02/23/[address]: Very minimal increase in size of the slightly lobulated nodule at the medial LEFT lung base now measuring 8.5 mm as compared to 7.6. No new or additional nodule or mass. No pneumonia. No media stinal or hilar adenopathy. Very mild atherosclerosis aorta. Normal size pulmonary artery. Small hiat al hernia. Abdomen CT: Mild hepatic steatosis. No metastatic lesions or mass within the liver. Normal portal vei n. Heterogeneous appearance of the gallbladder. Described on prior studies and consistent with stones . No evidence for acute diverticulitis. Normal spleen. Normal pancreas. Normal RIGHT adrenal gland. A gain noted are fat-containing lesions in the LEFT adrenal consistent with myelolipoma' s. These have been previously described. Multiple bilateral parapelvic cysts. No ureteral dilatation. Stomach is not distended. No small bowel obstruction. The appendix is normal. No GI tract obstruction . Anastomotic sutures are noted at the distal sigmoid. Again noted is mild luminal narrowing and thic kening of the wall proximal to the anastomotic site. Similar to the prior examination with no obvious progression. No adjacent lymph nodes. Ventral abdominal wall hernias. Loop of small bowel extends into the one of the hernia sacs with no o bstruction. Pelvic CT: No free fluid or adenopathy within the pelvis. Urinary bladder is minimally distended. No inguinal lymph nodes. Sclerotic focus in the LEFT symphysis stable since 2018. Additional sclerotic f ocus in the RIGHT posterior acetabular column is stable. Sclerotic focus in the posterior L1 vertebra l body is stable. Sclerotic foci within T12 are reidentified. These were not present on 07/24/2018. CT/CT chest abd pel w con* IMPRESSION: 1. Very minimal increase in size of the lobulated nodule medial LEFT lung base now measuring 8.5 mm as compared to 7.6 on the prior study. Recommend continue d close follow-up. 2. Sclerotic foci within T12 are reidentified without significant change. This were not present in 2018 and remain suspicious for metastatic disease. 3. Additional numerous foci within the pelvis and vertebral bodies. Stable sin ce prior studies. 4. Mild wall thickening and luminal narrowing at the sigmoid anastomotic site. No progression since 10/01/2021 and no adjacent lymph nodes. 5. No ascites. 6. No metastatic disease noted within the liver or adrenal glands. 7. Cholelithiasis.
[2022-02-22 15:18] LABS: Blood Urea Nitrogen 14 mg/dL (8-23); Glomerular Filtration Rate 85.8 mL/min (90-130)
[2022-02-22] MEDS: iohexol 350 mg/mL 100 mL Btl IV (15:22)
[2022-02-22] MEDS: barium sulfate 450 mL Oral Susp PO (15:23)
[2022-02-25 14:26] LABS: Basophils % 0.3 %; Eosinophils # 0.1 10^3/uL (0.0-0.8); Eosinophils % 1.5 %; Hematocrit 44.9 % (42.0-52.0); Hemoglobin 14.3 g/dL (11.7-16.6); Lymphocytes % 30.3 %; Mean Corpuscular HGB Conc 31.8 g/dL (30.0-36.0); Mean Corpuscular Hemoglobin 28.4 pg (28.0-34.0); Mean Corpuscular Volume 89.3 fl (80-94); Mean Platelet Volume 9.8 fL (7.4-10.4); Monocytes # 0.8 10^3/uL (0.2-0.9); Monocytes % 12.3 %; Neutrophils # 3.72 10^3/uL (1.8-7.7); Neutrophils % 55.3 %; Nucleated Red Blood Cells % 0 %; Platelet Count 214 10^3/cmm (130-400); Red Blood Count 5.03 10^6/uL (4.1-5.3); Red Cell Distribution Width 13.6 % (12.1-15.1); White Blood Count 6.7 10^3/uL (4.0-10.0)
[2022-02-25 14:43] LABS: Carcinoembryonic Antigen 13.2 ng/mL (0.0-4.7)
[2022-02-25 14:55] LABS: Alanine Aminotransferase 30 U/L (0-41); Albumin Level 4.1 g/dL (3.5-5.2); Alkaline Phosphatase 50 IU/L (40-130); Aspartate Amino Transferase 18 U/L (0-40); Blood Urea Nitrogen 15 mg/dL (8-23); Calcium 8.8 mg/dL (8.5-10.5); Carbon Dioxide 26 mmol/L (22-29); Chloride 106 mmol/L (98-107); Globulin 2.1 g/dL (1.3-4.6); Glomerular Filtration Rate 114.6 mL/min (90-130); Glucose 90 mg/dL (65-115); Osmolality Calculated 294 mOsm/kg (285-295); Sodium 142 mmol/L (136-145); Total Bilirubin 0.8 mg/dL (0.15-1.2); Total Protein 6.2 g/dL (6.6-8.7)
== END 2022-03-07 23:59 | disposition home or self-care (01) ==
PROVIDERS: Nurse Practitioner Family; PCP Family Medicine; Visit Provider Internal Medicine Medical Oncology
DX: C18.9 Malignant neoplasm of colon, unspecified (principal); C79.51 Secondary malignant neoplasm of bone
CPT/HCPCS: 71260; 74177; 80053; 82378; 82565; 84520; 85025

== ENCOUNTER 2022-03-18 07:43 | Day surgery (SDC) | payer BC, SELFPAY ==
[2022-03-16 10:56] VITALS: BMI 33.7
--- NOTE | 2022-03-18 07:49 | W.PM.OPSFHP ---
Same Day Surgery H&P Indication for Procedure/HPI DATE OF PROCEDURE: March 18, 2022 CHIEF COMPLAINT/INDICATIONFOR SURGICAL PROCEDURE: I feel PREOP DIAGNOSIS: Colon cancer PLANNED PROCEDURE: Operation Date: 03/18/22 09:00 Proposed Procedures p Sigmoidoscopy 97093/k57.31(Not Applicable) - Eliud Wilson MD This is a pleasant 61 years old gentleman comes today for follow-up with regard to surveillance sigmoidoscopy regarding an anastomotic stricture of the colorectal anastomosis status post open sigmoid colectomy for colorectal cancer. Previous colonoscopy was done back on 12/04/2021 and stricture of the anastomotic area of the colorectal lesion was appreciated yet did not require balloon dilation at that time. Biopsies were obtained showed no evidence of cancer. Patient undergone recently and had PET CT scan with concern of spot on the lung. He denies any signs or symptoms of bowel obstruction ROS All systems have been reviewed negative except as for the above or per problem list. Medications/Allergies* Home Medications Medication Instructions Recorded Confirmed Type hydrocodone 5 mg-acetaminophen 325 1 tab PO Q8H PRN Pain 02/25/22 03/16/22 History mg tablet lisinopril 20 mg tablet 20 mg PO DAILY 02/25/22 03/16/22 History Allergies/Adverse Reactions Allergy/AdvReac Type Severity Reaction Status Date / Time No Known Allergies Allergy Verified 03/18/22 07:51 Pertinent History/Comorbid Conditions* Medical History (Updated 02/25/22 @ 13:46 by Talisha Panda NP) Colon polyp History of colon cancer Family History (Updated 02/25/22 @ 15:17 by Melania Mancera LPN) Diabetes Dementia Father Hyperlipidemia Cancer Father Hypertension Denies family history of CAD (coronary artery disease) Clotting disorder Psychiatric illness Chronic kidney disease (CKD) Suicide Anesthesia complication Bleeding disorder Lung disease Stroke Social History Smoking and tobacco status: never smoked Alcohol intake: never History of recent travel: No Current gender identity: Male Pertinent Exam Findings alert, oriented x 3, regular rate & rhythm and procedure specific exam findings (Abdominal examination nontender nondistended soft and stable ventral hernia) Recommendations Surgery/Procedure today (Flex sigmoidoscopy with possible biopsy) Coding Level of Care Code Acute [facility] for Gwen Curiel
[2022-03-18 08:02] VITALS: BP 168/109; PULSE 81; RESP 18; TEMP 36.4; O2SAT 97
[2022-03-18] MEDS: sodium chloride 0.9% 1,000 ML 30 ML IV (08:11)
--- NOTE | 2022-03-18 08:48 | ANES.PREANE2 ---
Pre-Anesthetic Assessment Height/Weight: Height 1.91 m Weight 122.47 kg Temp Pulse Resp BP Pulse Ox O2 Del Method 97.6 F 81 18 168/109 97 03/18/22 08:02 03/18/22 08:02 03/18/22 08:02 03/18/22 08:02 03/18/22 08:02 03/18/22 08:02 Preop Diagnosis: Colon cancer Operation Date: 03/18/22 09:00 Proposed Procedures p Sigmoidoscopy 47078/k57.31(Not Applicable) - Eliud Wilson MD Familial anesthetic complications: None Was Beta Samreen taken within 24 hours: N/A Was Clonidine taken within 24 hours: N/A Last intake: Intake Last Liquid Date 03/17/22 Last Liquid Time 22:00 Last Solid Date 03/16/22 Last Solid Time 22:00 Social No alcohol and No tobacco Exam alert, oriented x 3, clear to auscultation bilaterally and regular rate & rhythm Airway Submandibular: within normal limits Cervical ROM: within normal limits Mallampati: Class II Comments: Comments: Missing molars History/ROS No significant complaints Pulmonary None reported CV/HEM Hypertension 05/2020 EKG Interpretive Statements SINUS RHYTHM SEPTAL MYOCARDIAL INFARCTION [40+ ms Q WAVE IN V1/V2], PROBABLY OLD Compared to ECG 06/24/2016 08:39:08 Myocardial infarct finding now present T-wave abnormality no longer present Electronically Signed On 05-16-2020 19:21:01 CDT by Greg Shea M.D. [email or web address] None reported Hepatic None reported GI None reported Metabolic Obese Diverticulosis [facility] [place] None reported Neuropsych None reported Anesthetic Plan ASA status: 2 Anesthesia: Anesthesia Evaluation, General and MAC Other: I discussed with the patient risks, goals, and benefits of MAC and general anesthesia. We discussed spectrum of MAC anesthesia including conversion to general as well as possibility of recall of intraoperative stimuli including discomfort/pain. Patient agrees to proceed with MAC. Risk of > 500 ml blood loss (7ml/kg in children): No Medications/Allergies Home Medications Medication Instructions Recorded Confirmed Last Taken Type hydrocodone 5 mg-acetaminophen 325 1 tab PO Q8H PRN Pain 07/03/16/22 03/17/22 History mg tablet lisinopril 20 mg tablet 20 mg PO DAILY 02/25/22 03/16/22 03/17/22 History Allergies Allergy/AdvReac Type Severity Reaction Status Date / Time No Known Allergies Allergy Verified 03/18/22 07:51 Current Medications Generic Name Dose Route Start Last Admin Trade Name Freq PRN Reason Stop Dose Admin Sodium Chloride 1,000 mls @ 30 mls/hr 03/18/22 08:00 03/18/22 08:11 Sodium Chloride 0.9% IV 03/19/22 07:59 30 mls/hr .Q24H PIKNY Administration PFSH Anesthesia Medical History Colon polyp History of colon cancer Family History Father Cancer Dementia Other Diabetes Hyperlipidemia Hypertension Denies family history of CAD (coronary artery disease) Clotting disorder Psychiatric illness Chronic kidney disease (CKD) Suicide Anesthesia complication Bleeding disorder Lung disease Stroke Social History Smoking and tobacco status: never smoked Alcohol intake: never History of recent travel: No Current gender identity: Male Data Anesthesia Cardiac Studies: No Data to Display
[2022-03-18 09:24] VITALS: BP 132/84; PULSE 74; RESP 18; TEMP 36.2; O2SAT 95
[2022-03-18 09:34] VITALS: BP 129/86; PULSE 73; RESP 18; TEMP 36.7; O2SAT 96
--- NOTE | 2022-03-18 11:21 | ANE.PACU2 ---
Inpatient post-anesthesia follow up: Airway intact: Yes Vital signs: Temperature 98.1 F Pulse Rate 73 Respiratory Rate 18 Blood Pressure 129/86 Pulse Oximetry 96 Oxygen Delivery Me thod Room Air Oxygen Flow Rate Fraction of Inspir ed Oxygen Hydration adequate: Yes Nausea and vomiting: No Pain level: 1 Mental status: Baseline
== END 2022-03-18 09:55 | disposition home or self-care (01) ==
PROVIDERS: PCP Family Medicine; Visit Provider Surgery
PROC: 0DJD8ZZ Inspection of Lower Intestinal Tract, Via Natural or Artificial Opening Endoscopic (ICD-10-PCS; CPT 45330; principal; 2022-03-18 09:00)
DX: Z12.11 Encounter for screening for malignant neoplasm of colon (principal); K56.699 Other intestinal obstruction unspecified as to partial versus complete obstruction; Z85.038 Personal history of other malignant neoplasm of large intestine; Z90.49 Acquired absence of other specified parts of digestive tract
CPT/HCPCS: 45331; 45340; 88305; J2704; J7030

== ENCOUNTER 2022-04-28 12:58 | Oncology outpatient (recurring) (ONCR) | payer BC, SELFPAY ==
[2022-04-28 13:46] LABS: Basophils % 0.5 %; Eosinophils # 0.1 10^3/uL (0.0-0.8); Eosinophils % 1.6 %; Hemoglobin 14.6 g/dL (11.7-16.6); Lymphocytes # 2.1 10^3/uL (0.8-4.8); Lymphocytes % 24.3 %; Mean Corpuscular HGB Conc 32.4 g/dL (30.0-36.0); Mean Corpuscular Hemoglobin 29.3 pg (28.0-34.0); Mean Corpuscular Volume 90.2 fl (80-94); Mean Platelet Volume 10.1 fL (7.4-10.4); Monocytes # 0.8 10^3/uL (0.2-0.9); Monocytes % 9.5 %; Neutrophils # 5.58 10^3/uL (1.8-7.7); Neutrophils % 63.8 %; Nucleated Red Blood Cells % 0 %; Platelet Count 238 10^3/cmm (130-400); Red Blood Count 4.99 10^6/uL (4.1-5.3); Red Cell Distribution Width 13.9 % (12.1-15.1); White Blood Count 8.8 10^3/uL (4.0-10.0)
[2022-04-28 14:19] LABS: Carcinoembryonic Antigen 16.4 ng/mL (0.0-4.7)
[2022-04-28 14:30] LABS: Alanine Aminotransferase 23 U/L (0-41); Alkaline Phosphatase 55 U/L (40-130); Anion Gap 16.9 (5-19); Aspartate Amino Transferase 15 U/L (0-40); Blood Urea Nitrogen 20 mg/dL (8-23); Calcium 9.2 mg/dL (8.5-10.5); Carbon Dioxide 23 mmol/L (22-29); Chloride 106 mmol/L (98-107); Globulin 2.8 g/dL (1.3-4.6); Glomerular Filtration Rate 85.8 mL/min (90-130); Glucose 87 mg/dL (65-115); Osmolality Calculated 296 mOsm/kg (285-295); Potassium 3.9 mmol/L (3.5-5.1); Sodium 142 mmol/L (136-145); Total Bilirubin 0.8 mg/dL (0.15-1.2); Total Protein 6.8 g/dL (6.6-8.7)
== END 2022-05-07 23:59 | disposition home or self-care (01) ==
LOC: ONCMED 12:59
PROVIDERS: PCP Family Medicine; Visit Provider Internal Medicine Medical Oncology
DX: C18.7 Malignant neoplasm of sigmoid colon (principal)
CPT/HCPCS: 80053; 82378; 85025

== ENCOUNTER 2022-06-07 08:08 | Outpatient (CLI) | payer BC, SELFPAY ==
[2022-06-07] MEDS: iohexol 350 mg/mL 100 mL Btl PO (09:12)
[2022-06-07] MEDS: iohexol 350 mg/mL 100 mL Btl IV (09:31)
--- NOTE | 2022-06-07 09:45 | CT_ITS ---
WS: [id number] CT CHEST, ABDOMEN, AND PELVIS TECHNIQUE: Contrast-enhanced CT of the chest, abdomen, and pelvis with coronal and sagittal reformatt ed images. CLINICAL INFORMATION: Restaging COMPARISON: PET CT 03/13/[address] chest abdomen pelvis February 22, 2022 DLP: 1968.[address] scans at [facility] use at least one of these dose optimization techniques: automated e xposure control; mA and/or kV adjustment per patient size (includes targeted exams where dose is matc hed to clinical indication); or iterative reconstruction. CT CHEST: Lobulated 8mm nodule LEFT lower lobe medially is unchanged since the recent studies. No mediastinal o r hilar lymphadenopathy. Both lungs are well aerated. No acute pulmonary infiltrates. No focal pneumonia pleural fluid. Normal caliber thoracic aorta. Proximal main pulmonary arteries are normal. No axillary lymphadenopathy. Co ronary calcification. Hypertrophic changes thoracic spine. CT ABDOMEN AND PELVIS: Diffuse fatty infiltration of the liver. Normal portal vein and splenic vein. Cholelithiasis. Normal GE junction. Normal spleen. Peripelvic cysts. Unchanged umbilical hernia with herniated nonobstructed small bowel loops. Stable LEFT adrenal myelolipoma.RIGHT adrenal gland is normal. No hydronephrosis. Normal pancreas. Normal caliber abdominal aorta Inflammatory stranding and edema in the RIGHT lower quadrant with thickening and enhancement of the a ppendix suspicious for acute appendicitis. Small amount of fluid adjacent to the appendix suspicious for perforation. A few surrounding reactive lymph nodes. Mild wall thickening of the sigmoid anastomosis unchanged in appearance. Previously this was shown to be FDG avid suspicious for recurrence. Prominent enhancing prostate measuring 3.8 cm with thickening of the seminal vesicles. No adenopathy in the abdomen or pelvis. Stable sclerotic foci within the T12 vertebral body nonspecific and unchanged. Additional small scler otic foci within the LEFT symphysis and RIGHT posterior acetabulum and L1 vertebral body unchanged.. CT/CT chest abd pel w con* IMPRESSION: 1. Inflammatory stranding and edema in the RIGHT lower quadrant with thickenin g and enhancement of the appendix suspicious for acute appendicitis. Small amou nt air and fluid adjacent to the tip of the appendix suspicious for perforation . 2. Inflammatory stranding and edema in the RIGHT lower quadrant. Reactive lymp h nodes. No drainable fluid collections. 3. Stable LEFT lower lobe 8 mm pulmonary nodule. This is unchanged since February 23, 2022. 4. Thickening at the sigmoid anastomosis is unchanged since February 22, 2022. Thi s was FDG avid on the prior PET/CT suspicious for recurrence. 5. Small FDG avid mesenteric and pelvic lymph nodes described on the PET/CT ar e radiographically within normal size limits. No significant lymphadenopathy ot her than the RIGHT lower quadrant lymphadenopathy about the appendix felt to be reactive. 6. Cholelithiasis Notified Eric Barrett MD at 06/07/2022 11:03 AM.
== END 2022-06-07 08:09 | disposition home or self-care (01) ==
LOC: RAD 08:10
PROVIDERS: PCP Family Medicine; Visit Provider Internal Medicine Medical Oncology
DX: C18.7 Malignant neoplasm of sigmoid colon (principal); K80.20 Calculus of gallbladder without cholecystitis without obstruction
CPT/HCPCS: 71260; 74177

== ENCOUNTER 2022-06-07 13:23 | Emergency (ER) | payer BC, SELFPAY ==
[2022-06-07 13:43] VITALS: BP 158/96; PULSE 85; RESP 14; TEMP 37.1; O2SAT 95; BMI 34.3
--- NOTE | 2022-06-07 13:53 | ED_ITS ---
HPI - Abdominal Pain General: Chief Complaint: Abdominal Pain Stated Complaint: sent by [facility], pre outpt surgery Time Seen by Provider: 06/07/22 13:37 Source: patient Mode of arrival: ambulatory History of Present Illness: 60-year-old male with a known history of colon cancer. He was getting routine repeat imaging today because of concern of an elevating CEA and an underlying recurrence of his colon cancer was recently diag nosed around 2016 for. He has COVID resection underwent chemo and radiation but routine monitoring is showed an increasing CEA level. CT DEET done today shows perforation with some air and fluid around lower portion of the right hemicolon and some inflammation of the appendix with some adjacent free air concerning for a perforation. There is other lymphadenopathy but it is not significantly anibal nged from his previous scans the lymphadenopathy in the region of the appendix is suggestive of reactive due to acute appendicitis. Prior to the CT patient has not had any abdominal discomfort in the last day or 2. He had eaten this morning around 1130 had a rather large meal after the CT was done. MD elicited complaint: other (Abnormal CT) Pertinent past history: other (Colon cancer) Location: None and L flank Severity: mild Quality: cramping Radiation: none Exacerbating factors: nothing Relieving factors: nothing Associated Symptoms: Denies anorexia, belching, bloating, change in bowel habits, change in stool character, chills, coffee ground emesis, constipation, GI cramping, diarrhea, dyspepsia, dysuria, excessive flatus, fever(s), heartburn, hematochezia, hematemesis, fecal incontinence, loose stools, melena, nausea, poor appetite, syncope and vomiting Review of Systems Const: Denies: fever(s) or chills ENMT: Denies: throat pain, ear or mastoid pain, nasal discharge or nasal congestion Card: Denies: syncope Resp: Denies: dyspnea, productive cough or non-productive cough GI: Denies: nausea, vomiting, hematemesis, coffee ground emesis, heartburn, diarrhea, constipation, bloating, GI cramping, belching, excessive flatus, fecal incontinence, change in bowel habits, change in stool character, hematochezia or melena : Denies: dysuria Skin/Breast: Denies: rash or pruritus PFSH ED PFSH: Medical History History of colon cancer Hypertension Surgical History History of colonoscopy 2021 History of partial colectomy (06/25/16) Sigmoid colon resection History of removal of Port-a-Cath 07/05/2017 History of tonsillectomy Family History Father Cancer Dementia Other Diabetes Hyperlipidemia Hypertension Denies family history of CAD (coronary artery disease) Clotting disorder Psychiatric illness Chronic kidney disease (CKD) Suicide Anesthesia complication Bleeding disorder Lung disease Stroke Social History Smoking and tobacco status: never smoked Alcohol intake: never History of recent travel: No Current gender identity: Male Physical Exam Const: COMMON NORMALS: no acute distress GENERAL APPEARANCE: cooperative and comfortable ORIENTATION/CONSCIOUSNESS: Yes awake, Yes oriented to person, Yes oriented to place and Yes oriented to time HENMT: COMMON NORMALS: normocephalic, atraumatic and hearing grossly normal bilaterally HEAD & SCALP: normocephalic and atraumatic Resp: COMMON NORMALS: normal respiratory effort, No retractions, No use of accessory muscles and clear to auscultation bilaterally AUSCULTATION: clear to auscultation bilaterally Cardio: COMMON NORMALS: regular rate, regular rhythm and No murmurs present ( Cardio) RATE: regular rate RHYTHM: regular rhythm GI: COMMON NORMALS: Soft to palpation and No hepatosplenomegaly present AUSCULTATION: Yes normoactive bowel sounds PALPATION: Yes Soft to palpation, No Tenderness to palpation present (GI), No Guarding due to palpation present (GI) and Yes No hepatosplenomegaly present Extremity: COMMON NORMALS: normal to inspection, capillary refill normal, no clubbing, cyanosis or edema, no calf tenderness and no pedal edema Neuro: SENSORIUM/ORIENTATION: Yes oriented to person, Yes oriented to place and Yes oriented to time Skin: COMMON NORMALS: no rashes or lesions noted GENERAL SKIN EXAM: no rashes or lesions noted Course Vital Signs: Vital signs: Vital Signs Temperature 98.8 F 06/07/22 13:43 Pulse Rate 85 06/07/22 13:43 Respiratory Rate 14 06/07/22 13:43 Blood Pressure 158/96 06/07/22 13:43 Pulse Oximetry 95 06/07/22 13:43 Oxygen Delivery Me thod 06/07/22 13:43 MDM - Abdominal Pain Medical Decision Making CT shows acute appendicitis localized lymphadenopathy and possible perforation on exam he is very unremarkable. However given the CT result there is very little we would do here in the emergency room already talked to Dr. Street who is on-call for surgery he will see the patient in outpatient surgery. In addition of the contact the hospitalist and made them aware they may need to see the patient after his procedure is done. Medical Records I reviewed the patient's medical records. Discharge Plan Discharge Patient Disposition: Admitted As Inpatient Clinical Impression: Acute appendicitis, Malignant neoplasm of sigmoid colon Condition: Stable Prescriptions: No Action lisinopril 20 mg tablet 20 mg PO DAILY hydrocodone-acetaminophen 5-325 mg tablet 1 tab PO Q8H PRN (Reason: Pain) Referrals: Janeth Ramirez DO [Primary Care Provider] - Patient Instructions: Appendicitis (GEN) Coding Level of Care Code ED [employer]
--- NOTE | 2022-06-07 14:39 | P.HP_ITS ---
Providers/Chief Complaint Primary Care Provider: Janeth Ramirez DO Chief Complaint: sent by [facility], pre outpt surgery History of Present Illness Bk Tamayo is a 62 year old male, with a history of colon cancer and sigmoidectomy, who presents due to an incidental finding on CT. He was getting abdominal CT for follow-up from his colon cancer and appendicitis with possible perforation was identified. Patient reports that he has not been having any abdominal pain. Denies any fever or chills. For the last 2 months he has been getting nausea, but he attributes this to new vitamins he started taking in the morning on an empty stomach. He denies any diarrhea or constipation. Denies any hematochezia and/or melena. He has a known ventral hernia and has no current plan for repair. Review of Systems General: Reports: 10 or more systems reviewed and unremarkable except in HPI and below Medications/Allergies Home Medications Medication Instructions Recorded Confirmed Last Taken Type hydrocodone 5 mg-acetaminophen 325 1 tab PO Q8H PRN Pain 02/25/22 04/28/22 03/17/22 History mg tablet lisinopril 20 mg tablet 20 mg PO DAILY 02/25/22 04/28/22 03/17/22 History amoxicillin 875 mg-potassium 1 tab PO BID 14 days #28 tabs 06/07/22 Unknown Rx clavulanate 125 mg tablet Allergies Allergy/AdvReac Type Severity Reaction Status Date / Time No Known Allergies Allergy Verified 04/28/22 15:24 PFSH Acute PFSH: Medical History History of colon cancer Hypertension Surgical History History of colonoscopy 2021 History of partial colectomy (06/25/16) Sigmoid colon resection History of removal of Port-a-Cath 07/05/2017 History of tonsillectomy Family History Father Cancer Dementia Other Diabetes Hyperlipidemia Hypertension Denies family history of CAD (coronary artery disease) Clotting disorder Psychiatric illness Chronic kidney disease (CKD) Suicide Anesthesia complication Bleeding disorder Lung disease Stroke Social History Smoking and tobacco status: never smoked Alcohol intake: never History of recent travel: No Current gender identity: Male Vitals/I&O/Wt Last Vital Signs Temp 98.8 F 06/07/22 13:43 Pulse 85 06/07/22 13:43 Resp 14 06/07/22 13:43 BP 158/96 06/07/22 13:43 Pulse Ox 95 06/07/22 13:43 O2 Del Method 06/07/22 13:43 Weight last 48 hrs Weight 275 lb Physical Exam Narrative: General : Patient is well developed , no acute distress, oriented x3 Head : Normal cephalic, a-traumatic. Ears : Pinnae and external canal are normal. Hearing is normal. Eyes : PERRLA, Sclera and injection are normal. No conjunctival discharge. Nose : Mucous membranes are without erythema. Throat : buccal mucosa is normal, gums are without significant recession or hypertrophy. Lungs : Equal chest rise bilaterally, no use of accessory muscles, trachea is midline. Cor : Rate and rhythm are normal. Abdomen : Soft, ND, mild right-sided tenderness, reducible midline ventral hernia, no g/r/m Extremities : No edema, no cyanosis or clubbing, dorsalis pedis pulses are present bilaterally, non-tender to palpation of calves. Upper extremities are normal bilaterally. Back : non-tender to palpation, no CVA tenderness. Neuro : CN II - XII intact, Upper and lower extremities have equal and full strength A&P Assessment and plan (1) Appendicitis: (2) Ventral hernia: Plan Patient is currently asymptomatic from his appendix. I am unable to tell when these radiologic findings began. In light of this I gave the patient the option of appendectomy versus interval appendectomy. He wanted to proceed with interval appendectomy. We will give Augmentin for 2 weeks and perform an interval appendectomy in 6 weeks. Laparoscopic Appendectomy The risks and benefits of the procedure, including but not limited to, bleeding, infection, scar, numbness, pain, damage to surrounding structures, conversion to an open procedure, were explained to the patient. He is understanding of the risks and wishes to proceed. Then 1 to 2 weeks following that we will fix his hernia. Laparoscopic ventral hernia repair with mesh The risks and benefits of the procedure, including but not limited to, bleeding, infection, mesh infection requiring mesh excision antibiotic therapy and repeat surgery, damage surrounding structures, conversion to an open procedure, scar, numbness, pain, and/or recurrence were explained to the patient. Patient is understanding of the risks and wishes to proceed. I made it very clear to him that if he starts to become ill, develops significant abdominal pain or a fever that he should go to the ER. Attestations Medical Necessity Statement*: Patient is being discharged home Coding Level of Care Code Acute [employer] for [employer] [employer] Diagnoses Appendicitis K37 Ventral hernia K43.9
--- NOTE | 2022-06-07 14:54 | SUR.PREOP ---
patient not having surgery today. pt seen by surgeon and a new plan was developed for surgery. see his note. patient left ambulatory.
== END 2022-06-07 15:20 | disposition admitted as inpatient to this hospital (09) ==
PROVIDERS: Surgery; Emergency Provider Family Medicine; PCP Family Medicine
PROC: 0DTJ4ZZ Resection of Appendix, Percutaneous Endoscopic Approach (ICD-10-PCS; CPT 44970; principal; 2022-06-07 15:00)
DX: K35.80 Unspecified acute appendicitis (principal); C18.7 Malignant neoplasm of sigmoid colon; I10 Essential (primary) hypertension; Z92.21 Personal history of antineoplastic chemotherapy; Z85.038 Personal history of other malignant neoplasm of large intestine
CPT/HCPCS: 99282

== ENCOUNTER 2022-06-09 13:10 | Oncology outpatient (recurring) (ONCR) | payer BC, SELFPAY ==
[2022-06-09 13:58] LABS: Basophils % 0.4 %; Eosinophils # 0.1 10^3/uL (0.0-0.8); Eosinophils % 1.3 %; Hematocrit 44.7 % (42.0-52.0); Hemoglobin 14.1 g/dL (11.7-16.6); Lymphocytes # 2.3 10^3/uL (0.8-4.8); Lymphocytes % 21.8 %; Mean Corpuscular HGB Conc 31.5 g/dL (30.0-36.0); Mean Corpuscular Hemoglobin 28.7 pg (28.0-34.0); Mean Platelet Volume 9.5 fL (7.4-10.4); Monocytes # 0.9 10^3/uL (0.2-0.9); Monocytes % 8.7 %; Neutrophils # 7.04 10^3/uL (1.8-7.7); Neutrophils % 67.1 %; Nucleated Red Blood Cells % 0 %; Platelet Count 270 10^3/cmm (130-400); Red Blood Count 4.91 10^6/uL (4.1-5.3); Red Cell Distribution Width 13.8 % (12.1-15.1); White Blood Count 10.5 10^3/uL (4.0-10.0)
[2022-06-09 14:31] LABS: Carcinoembryonic Antigen 15.6 ng/mL (0.0-4.7)
[2022-06-09 14:42] LABS: Alanine Aminotransferase 16 U/L (0-41); Albumin Level 3.9 g/dL (3.5-5.2); Alkaline Phosphatase 52 U/L (40-130); Anion Gap 14.2 (5-19); Aspartate Amino Transferase 12 U/L (0-40); Blood Urea Nitrogen 18 mg/dL (8-23); Calcium 8.8 mg/dL (8.5-10.5); Carbon Dioxide 26 mmol/L (22-29); Chloride 105 mmol/L (98-107); Globulin 2.8 g/dL (1.3-4.6); Glomerular Filtration Rate 114.3 mL/min (90-130); Glucose 95 mg/dL (65-115); Osmolality Calculated 294 mOsm/kg (285-295); Potassium 4.2 mmol/L (3.5-5.1); Sodium 141 mmol/L (136-145); Total Bilirubin 0.8 mg/dL (0.15-1.2); Total Protein 6.7 g/dL (6.6-8.7)
== END 2022-07-07 23:59 | disposition home or self-care (01) ==
PROVIDERS: PCP Family Medicine; Visit Provider Internal Medicine Medical Oncology
DX: Z08 Encounter for follow-up examination after completed treatment for malignant neoplasm (principal); Z85.038 Personal history of other malignant neoplasm of large intestine; Z90.49 Acquired absence of other specified parts of digestive tract; R97.0 Elevated carcinoembryonic antigen [CEA]; K35.80 Unspecified acute appendicitis; Z79.2 Long term (current) use of antibiotics; Z92.21 Personal history of antineoplastic chemotherapy
CPT/HCPCS: 36415; 80053; 82378; 85025

== ENCOUNTER 2022-07-22 07:25 | Day surgery (SDC) | payer BC, SELFPAY ==
[2022-07-21 15:30] VITALS: BMI 34.3
[2022-07-22] VITALS (10 sets, daily range): BP systolic 109–161; BP diastolic 66–104; PULSE 53–74; RESP 10–20; TEMP 36.1–36.3; O2SAT 91–98
--- NOTE | 2022-07-22 07:53 | ANES.PREANE2 ---
Pre-Anesthetic Assessment Height/Weight: Height 1.91 m Weight 124.738 kg Preop Diagnosis: appendicitis Operation Date: 07/22/22 08:15 Proposed Procedures p Laparoscopic Appendectomy 18473,K37(Not Applicable) - Harshal Street DO Familial anesthetic complications: None Was Beta Samreen taken within 24 hours: N/A Was Clonidine taken within 24 hours: N/A Last intake: > 8hrs Social No alcohol and No tobacco Exam alert, oriented x 3, clear to auscultation bilaterally and regular rate & rhythm Airway Mallampati: Class III Dentition: other (missing) Comments: Comments: full remy CV/HEM Hypertension GI hx colon cancer Metabolic Morbid Obesity Anesthetic Plan ASA status: 3 Anesthesia: General Risk of > 500 ml blood loss (7ml/kg in children): No Medications/Allergies Home Medications Medication Instructions Recorded Confirmed Last Taken Type hydrocodone 5 mg-acetaminophen 325 1 tab PO Q8H PRN Pain 02/25/22 07/22/22 03/17/22 History mg tablet lisinopril 20 mg tablet 20 mg PO DAILY 02/25/22 07/22/22 1 Week Ago History ~07/15/22 Allergies Allergy/AdvReac Type Severity Reaction Status Date / Time No Known Allergies Allergy Verified 07/21/22 15:33 [facility] Anesthesia Medical History History of colon cancer Hypertension Surgical History History of colonoscopy 2021 History of partial colectomy (06/25/16) Sigmoid colon resection History of removal of Port-a-Cath 07/05/2017 History of tonsillectomy Family History Father Cancer Dementia Other Diabetes Hyperlipidemia Hypertension Denies family history of CAD (coronary artery disease) Clotting disorder Psychiatric illness Chronic kidney disease (CKD) Suicide Anesthesia complication Bleeding disorder Lung disease Stroke Social History Smoking and tobacco status: never smoked Alcohol intake: never History of recent travel: No Current gender identity: Male Data Anesthesia Cardiac Studies: No Data to Display
[2022-07-22] MEDS: sodium chloride 0.9% 1,000 ML 30 ML IV (08:13)
--- NOTE | 2022-07-22 08:42 | P.HP_ITS ---
Providers/Chief Complaint Primary Care Provider: Janeth Ramirez DO Chief Complaint: K37 History of Present Illness Bk Tamayo is a 62 year old male who is here for an outpatient appendectomy. Medications/Allergies Home Medications Medication Instructions Recorded Confirmed Last Taken Type hydrocodone 5 mg-acetaminophen 325 1 tab PO Q8H PRN Pain 02/25/22 07/22/22 03/17/22 History mg tablet lisinopril 20 mg tablet 20 mg PO DAILY 02/25/22 07/22/22 1 Week Ago History ~07/15/22 Allergies Allergy/AdvReac Type Severity Reaction Status Date / Time No Known Allergies Allergy Verified 07/21/22 15:33 PFSH Acute PFSH: Medical History History of colon cancer Hypertension Surgical History History of colonoscopy 2021 History of partial colectomy (06/25/16) Sigmoid colon resection History of removal of Port-a-Cath 07/05/2017 History of tonsillectomy Family History Father Cancer Dementia Other Diabetes Hyperlipidemia Hypertension Denies family history of CAD (coronary artery disease) Clotting disorder Psychiatric illness Chronic kidney disease (CKD) Suicide Anesthesia complication Bleeding disorder Lung disease Stroke Social History Smoking and tobacco status: never smoked Alcohol intake: never History of recent travel: No Current gender identity: Male Vitals/I&O/Wt Last Vital Signs Temp 97.0 F L 07/22/22 07:40 Pulse 74 07/22/22 07:40 Resp 18 07/22/22 07:40 BP 161/104 07/22/22 07:40 Pulse Ox 96 07/22/22 07:40 O2 Del Method 07/22/22 07:50 Weight last 48 hrs Weight 275 lb A&P Assessment and plan (1) Appendicitis: Plan Laparoscopic appendectomy The risks and benefits were explained and documented Attestations Medical Necessity Statement*: Home Coding Level of Care Code Acute 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
[2022-07-22] MEDS: ceFAZolin 2,000 MG in sodium chloride 0.9% (plus) 50 ML 100 MG IV (09:15)
--- NOTE | 2022-07-22 10:15 | P.OP_ITS ---
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 Harshal Street DO Anesthesia: General Estimated blood loss (mL): 5 Complications: None apparent Findings: Mucocele in tip of appendix Brief History: This very pleasant 62-year-old gentleman who was found to have appendicitis on an outpatient CT for follow-up after his colon cancer treatment. Laparoscopic appendectomy was indicated. The risks and benefits were explained and documented. Procedure: Patient was wheeled into the operative room and placed on the OR table in a supine position. Abdomen was inspected prepped and draped in usual sterile fashion. Time-out was performed and all present were in agreement. A 15 blade scalp was used to make a stab incision in the left upper quadrant and intra- abdominal insufflation was achieved using a Veress needle. A 5 mm trocar was then placed through this incision under Optiview. After localizing the tissue incisions were made and a 12 millimeter trocar was placed just right of the umbilicus because there were midline adhesions and hernias. 2 additional 5 mm trochars were placed in the right lower quadrant under direct visualization.. The appendix was identified and was mildly inflamed. I used the Enseal to ligate the mesoappendix at the base. I then used 2 PDS endo-loops to snare the base of the appendix. I then used the Enseal to ligate the appendix distally. There was mucinous contents inside the appendix. The appendix was removed from the abdomen using an Endo-Catch bag through the 12 mm port. I examined the abdomen and no further pathology was identified. Hemostasis was noted. I then closed the 12 mm port site with a Junito-Mira and 0 Vicryl suture in a figure of 8 fashion. All ports removed. Skin was washed and dried. Incisions were closed with 4 O Vicryl in a subcuticular interrupted fashion. Skin glue was applied. Patient tolerated the procedure well.
--- NOTE | 2022-07-22 10:40 | PC.NURSE ---
Patient awake on arrival. Airway removed on arrival
--- NOTE | 2022-07-22 10:41 | PC.NURSE ---
Desating when falling asleep. Oxygen applied
--- NOTE | 2022-07-22 10:43 | PC.NURSE ---
Ice to incision for comfort
--- NOTE | 2022-07-22 14:15 | ANE.PACU2 ---
Inpatient post-anesthesia follow up: Airway intact: Yes Vital signs: Temperature 97.0 F Pulse Rate 59 Respiratory Rate 20 Blood Pressure 121/75 Pulse Oximetry 97 Oxygen Delivery Me thod Room Air Oxygen Flow Rate 2 Fraction of Inspir ed Oxygen Hydration adequate: Yes Nausea and vomiting: No Pain level: 1 Mental status: Baseline
== END 2022-07-22 11:40 | disposition home or self-care (01) ==
PROVIDERS: PCP Family Medicine; Visit Provider Surgery
PROC: 0DTJ4ZZ Resection of Appendix, Percutaneous Endoscopic Approach (ICD-10-PCS; CPT 44970; principal; 2022-07-22 08:05)
DX: K37 Unspecified appendicitis (principal); I10 Essential (primary) hypertension; E66.01 Morbid (severe) obesity due to excess calories; Z68.34 Body mass index [BMI] 34.0-34.9, adult; Z85.038 Personal history of other malignant neoplasm of large intestine
CPT/HCPCS: 44970; 88304; J0330; J0690; J1100; J1170; J1200; J2370; J2405; J2704; J2710; J3010; J3490; J7030

== ENCOUNTER 2022-08-05 06:02 | Day surgery (SDC) | payer BC, SELFPAY ==
[2022-08-05] VITALS (23 sets, daily range): BP systolic 117–191; BP diastolic 71–113; PULSE 65–99; RESP 12–96; TEMP 36.5–36.7; O2SAT 90–98
[2022-08-05] MEDS: sodium chloride 0.9% 1,000 ML 30 ML IV (06:32)
--- NOTE | 2022-08-05 06:35 | ANES.PREANE2 ---
Pre-Anesthetic Assessment Height/Weight: Height 1.91 m Weight 117.934 kg Temp Pulse Resp BP Pulse Ox O2 Del Method 97.7 F 80 16 191/113 95 08/05/22 06:09 08/05/22 06:09 08/05/22 06:09 08/05/22 06:09 08/05/22 06:09 08/05/22 06:23 Preop Diagnosis: Incisional hernia Operation Date: 08/05/22 07:00 [place] Procedures p 78534 lap ventral hernia repair w/mesh K43.9(Not Applicable) - Harshal Street DO Familial anesthetic complications: None Was Beta Samreen taken within 24 hours: N/A Was Clonidine taken within 24 hours: N/A Last intake: Intake Last Liquid Date 08/04/22 Last Liquid Time 22:00 Last Solid Date 08/04/22 Last Solid Time 20:00 Social No alcohol and No tobacco Exam alert, oriented x 3, clear to auscultation bilaterally and regular rate & rhythm Airway Mallampati: Class IV Dentition: other (missing teeth) Comments: Comments: Full remy CV/HEM Hypertension GI hx colon cancer Anesthetic Plan ASA status: 3 Anesthesia: General Risk of > 500 ml blood loss (7ml/kg in children): No Medications/Allergies Home Medications Medication Instructions Recorded Confirmed Last Taken Type hydrocodone 5 mg-acetaminophen 325 1 tab PO Q8H PRN Pain 02/25/22 08/05/22 07/22/22 History mg tablet lisinopril 20 mg tablet 20 mg PO DAILY 02/25/22 08/04/22 08/04/22 History Allergies Allergy/AdvReac Type Severity Reaction Status Date / Time No Known Allergies Allergy Verified 08/05/22 06:12 Current Medications Generic Name Dose Route Start Last Admin Trade Name Freq PRN Reason Stop Dose Admin Sodium Chloride 1,000 mls @ 30 mls/hr 08/05/22 06:15 08/05/22 06:32 Sodium Chloride 0.9% IV 08/06/22 06:14 30 mls/hr .Q24H PINKY Administration PFSH Anesthesia Medical History (Updated 08/03/22 @ 15:[address] DO) History of colon cancer Hypertension Mucinous cystadenoma of appendix Surgical History History of colonoscopy 2021 History of partial colectomy (06/25/16) Sigmoid colon resection History of removal of Port-a-Cath 07/05/2017 History of tonsillectomy Family History Father Cancer Dementia Other Diabetes Hyperlipidemia Hypertension Denies family history of CAD (coronary artery disease) Clotting disorder Psychiatric illness Chronic kidney disease (CKD) Suicide Anesthesia complication Bleeding disorder Lung disease Stroke Social History Smoking and tobacco status: never smoked Alcohol intake: never History of recent travel: No Current gender identity: Male Data Anesthesia Cardiac Studies: No Data to Display
--- NOTE | 2022-08-05 06:59 | W.PM.OPSUD ---
Surgery/Procedure H&P Update DATE OF PROCEDURE: August 05, 2022 DATE H&P PERFORMED: 08/03/22 PREOP DIAGNOSIS: Incisional hernia PLANNED PROCEDURE: Operation Date: 08/05/22 07:00 Proposed Procedures p 37938 lap ventral hernia repair w/mesh K43.9(Not Applicable) - Harshal Street DO
[2022-08-05] MEDS: ceFAZolin 2,000 MG in sodium chloride 0.9% (plus) 50 ML 100 MG IV (07:05)
--- NOTE | 2022-08-05 08:05 | PM.OP ---
Operative Report Date of procedure: August 05, 2022 Pre-op diagnosis: Preop Diagnosis Incisional hernia Post-op diagnosis: same Procedure done: Laparoscopic repair of incisional hernia with mesh Implants: 8 inch round ventralight mesh Specimens removed/disposition: None Surgeon: Dr. Harshal Street DO Anesthesia: General Complications: None apparent Brief History: This is a very pleasant 62-year-old gentleman with an incisional hernia. Laparoscopic repair with mesh was indicated. The risks and benefits were explained and documented. Procedure: Patient was wheeled into the operative room and placed on the OR table in a supine position. Abdomen was inspected prepped and draped in usual sterile fashion. Time-out was performed and all present were in agreement. A 15 blade scalp was used to make a 5 millimeter incision left upper quadrant. A Veress needle was placed into the incision and intra-abdominal insufflation was brought to 15 millimeters of mercury. A 12 millimeter trocar was placed into the left lower quadrant. The energy but device was then used to lyse adhesions which were quite extensive. The hernia had a Kosovan cheese appearance. An 8 inch ventral light mesh was placed into the abdomen and brought up through the the center of the hernias using an the Junito-Mira. The mesh was then tacked in place in a double crown fashion. The skeleton of the mesh was removed via the left lower quadrant. The left lower quadrant port site was closed with an 0 Vicryl suture in a Junito-Mira in a [id number] fashion. Incisions were closed with 4 O Vicryl in a subcuticular interrupted fashion. Skin glue was applied. Patient tolerated the procedure well.
--- NOTE | 2022-08-05 08:29 | P.PCN_ITS ---
PACU note Narrative: VSS, Good respiratory effort, report to CHIEF OPERATIONS OFFICER Exam: awake
--- NOTE | 2022-08-05 08:29 | PM.PACU ---
PACU note Narrative: VSS, Good respiratory effort, report to SENIOR IT ENGINEER Exam: awake
[2022-08-05] MEDS: fentaNYL 50 mcg/mL INJ 2mL IVP ×2 (08:31→08:44)
[2022-08-05] MEDS: ondansetron 2 mg/ML SDV 2 mL 4 MG IVP ×2 (08:38→08:48)
[2022-08-05] MEDS: HYDROmorphone 1 mg/mL INJ 1 mL 0.5 MG IVP ×2 (08:52→09:06)
--- NOTE | 2022-08-05 09:01 | PC.NURSE ---
pain in lower abdomen. Abdomen firm on initial assessment into pacu. Dr. Street at bedside. Pain improving
[2022-08-05] MEDS: HYDROcodone-acetaminophen 7.5-325 mg Tablet 1 TAB PO (09:41)
[2022-08-05] MEDS: morphine 4 mg/mL SDV 1 mL IVP (09:46)
[2022-08-05 11:52] LABS: Anion Gap 12.9 (5-19); Blood Urea Nitrogen 20 mg/dL (8-23); Calcium 8.7 mg/dL (8.5-10.5); Carbon Dioxide 25 mmol/L (22-29); Chloride 109 mmol/L (98-107); Glucose 91 mg/dL (65-115); Osmolality Calculated 298 mOsm/kg (285-295); Potassium 3.9 mmol/L (3.5-5.1); Sodium 143 mmol/L (136-145)
--- NOTE | 2022-08-05 16:53 | ANE.PACU2 ---
Inpatient post-anesthesia follow up: Airway intact: Yes Vital signs: Temperature 98.1 F Pulse Rate 92 Respiratory Rate 18 Blood Pressure 117/84 Pulse Oximetry 94 Oxygen Delivery Me thod Room Air Oxygen Flow Rate 1 Fraction of Inspir ed Oxygen Hydration adequate: Yes Nausea and vomiting: No Pain level: 1 Mental status: Baseline
== END 2022-08-05 10:20 | disposition home or self-care (01) ==
PROVIDERS: Anesthesiology; PCP Family Medicine; Visit Provider Surgery
PROC: 0WQF4ZZ Repair Abdominal Wall, Percutaneous Endoscopic Approach (ICD-10-PCS; CPT 49654; principal; 2022-08-05 07:00)
DX: K43.2 Incisional hernia without obstruction or gangrene (principal); I10 Essential (primary) hypertension; Z85.038 Personal history of other malignant neoplasm of large intestine; Z90.49 Acquired absence of other specified parts of digestive tract
CPT/HCPCS: 49654; 80048; C1781; J0690; J1100; J1170; J2270; J2405; J2704; J2710; J3010; J3490; J7030

== ENCOUNTER 2022-11-23 13:21 | Oncology outpatient (recurring) (ONCR) | payer BC, SELFPAY ==
[2022-11-23 13:54] LABS: Basophils % 0.5 %; Eosinophils # 0.1 10^3/uL (0.0-0.8); Eosinophils % 1.8 %; Hematocrit 44.6 % (42.0-52.0); Hemoglobin 14.3 g/dL (11.7-16.6); Lymphocytes # 1.8 10^3/uL (0.8-4.8); Lymphocytes % 23.6 %; Mean Corpuscular HGB Conc 32.1 g/dL (30.0-36.0); Mean Corpuscular Volume 90.5 fl (80-94); Mean Platelet Volume 9.6 fL (7.4-10.4); Monocytes # 0.7 10^3/uL (0.2-0.9); Monocytes % 9.5 %; Neutrophils # 5.03 10^3/uL (1.8-7.7); Neutrophils % 64.3 %; Nucleated Red Blood Cells % 0 %; Platelet Count 219 10^3/cmm (130-400); Red Blood Count 4.93 10^6/uL (4.1-5.3); Red Cell Distribution Width 14.3 % (12.1-15.1); White Blood Count 7.8 10^3/uL (4.0-10.0)
[2022-11-23 14:12] LABS: Carcinoembryonic Antigen 25.4 ng/mL (0.0-4.7)
[2022-11-23 14:23] LABS: Alanine Aminotransferase 19 U/L (0-41); Albumin Level 3.9 g/dL (3.5-5.2); Alkaline Phosphatase 50 U/L (40-130); Aspartate Amino Transferase 17 U/L (0-40); Blood Urea Nitrogen 16 mg/dL (8-23); Calcium 8.7 mg/dL (8.5-10.5); Carbon Dioxide 26 mmol/L (22-29); Chloride 107 mmol/L (98-107); Globulin 2.4 g/dL (1.3-4.6); Glomerular Filtration Rate 61.3 mL/min (90-130); Glucose 86 mg/dL (65-115); Osmolality Calculated 292 mOsm/kg (285-295); Sodium 141 mmol/L (136-145); Total Bilirubin 0.4 mg/dL (0.15-1.2); Total Protein 6.3 g/dL (6.6-8.7)
[2022-11-23 14:26] LABS: Anion Gap 12.3 (5-19); Potassium 4.3 mmol/L (3.5-5.1)
== END 2022-12-05 23:59 | disposition home or self-care (01) ==
PROVIDERS: PCP Family Medicine; Visit Provider Internal Medicine Medical Oncology
DX: C18.7 Malignant neoplasm of sigmoid colon (principal); Z08 Encounter for follow-up examination after completed treatment for malignant neoplasm
CPT/HCPCS: 36415; 80053; 82378; 85025

== ENCOUNTER 2023-02-14 11:26 | Oncology outpatient (recurring) (ONCR) | payer BC, SELFPAY ==
[2023-02-14 11:43] VITALS: BP 158/100; PULSE 81; RESP 18; TEMP 36.2; O2SAT 97
[2023-02-14 12:04] LABS: Basophils # 0.1 10^3/uL (0.0-0.1); Basophils % 0.6 %; Eosinophils # 0.2 10^3/uL (0.0-0.8); Hematocrit 43.9 % (42.0-52.0); Lymphocytes % 25.3 %; Mean Corpuscular HGB Conc 31.9 g/dL (30.0-36.0); Mean Corpuscular Hemoglobin 29.1 pg (28.0-34.0); Mean Corpuscular Volume 91.3 fl (80-94); Mean Platelet Volume 9.4 fL (7.4-10.4); Monocytes # 0.8 10^3/uL (0.2-0.9); Monocytes % 9.6 %; Neutrophils # 4.87 10^3/uL (1.8-7.7); Neutrophils % 62.1 %; Nucleated Red Blood Cells % 0 %; Platelet Count 225 10^3/cmm (130-400); Red Blood Count 4.81 10^6/uL (4.1-5.3); Red Cell Distribution Width 13.8 % (12.1-15.1); White Blood Count 7.8 10^3/uL (4.0-10.0)
[2023-02-14 12:22] LABS: Alanine Aminotransferase 13 U/L (0-41); Albumin Level 3.8 g/dL (3.5-5.2); Alkaline Phosphatase 41 U/L (40-130); Anion Gap 11.5 (5-19); Aspartate Amino Transferase 12 U/L (0-40); Blood Urea Nitrogen 20 mg/dL (8-23); Calcium 8.9 mg/dL (8.5-10.5); Carbon Dioxide 27 mmol/L (22-29); Chloride 107 mmol/L (98-107); Globulin 2.3 g/dL (1.3-4.6); Glomerular Filtration Rate 85.5 mL/min (90-130); Glucose 91 mg/dL (65-115); Osmolality Calculated 294 mOsm/kg (285-295); Potassium 4.5 mmol/L (3.5-5.1); Sodium 141 mmol/L (136-145); Total Bilirubin 0.8 mg/dL (0.15-1.2); Total Protein 6.1 g/dL (6.6-8.7)
[2023-02-14 13:43] LABS: Carcinoembryonic Antigen 32.2 ng/mL (0.0-4.7)
== END 2023-03-07 23:59 | disposition home or self-care (01) ==
LOC: ONCMED 11:27
PROVIDERS: Nurse Practitioner Family; PCP Family Medicine; Visit Provider Internal Medicine Medical Oncology
DX: C18.7 Malignant neoplasm of sigmoid colon (principal)
CPT/HCPCS: 36415; 80053; 82378; 85025

== ENCOUNTER 2023-04-02 07:30 | Outpatient (CLI) | payer BC, SELFPAY ==
--- NOTE | 2023-04-02 07:30 | PETR_ITS ---
PROCEDURE INFORMATION: Exam: PET/CT Skull Base to Mid-thigh Exam date and time: 04/02/2023 8:22 AM Age: 62 years old Clinical indication: Condition or disease; Primary cancer: Colon cancer; Follow-up oncological assessment; Additional info: Follow up LABS AND CLINICAL REPORTS: Glucose: 91 mg/dl Treatment strategy for malignancy (PET staging): Restaging (PS) TECHNIQUE: Imaging protocol: Following at least four-hour fasting and following the injection of radiopharmaceutical, low dose CT images were obtained. Then, PET images were obtained. Attenuation corrected images were constructed using the CT scan. Fused images of PET and CT were reviewed. The standardized uptake values (SUV) reported below are maximum values within a region of interest, expressed in gm/ml. Exam includes orbital meatal line to mid-thigh. Radiopharmaceutical: 11.4 mCi F-18 FDG (Fluorodeoxyglucose), IV. Time of imaging post radiopharmaceutical administration: 1 hour Injection site: Right antecubital COMPARISON: CT chest, abdomen and pelvis 06/07/2022 PT PET Scan 03/13/2022 9:14 AM FINDINGS: Brain: Visualized brain has normal physiologic uptake. Pharynx: No abnormal uptake. Larynx: No abnormal uptake. Lungs, pleura and trachea: A solid medial left lower lobe noncalcified nodule measuring 1.2 cm in diameter on series 3, image 70 is noted, SUV max 2.3. Mild respiratory motion artifact somewhat obscures the nodule however it appears larger than on 06/07/2022 and the prior PET-CT where measured approximately in 0.9 cm with an SUV max 1.4. An additional solid nodule within the lingula appears to be present measuring 1 cm on series 3, image 65, SUV max 1.8. Streaky density in the prior CT of 06/07/2022 and prior PET-CT was present in this region with a previous SUV max 1.0. Heart: Normal physiologic uptake. Mediastinal space: No abnormal uptake. Liver: No abnormal uptake. Gallbladder and bile ducts: No abnormal uptake. A stone in the gallbladder is noted. Pancreas: No abnormal uptake. Spleen: No abnormal uptake. Adrenal glands: A non radiotracer avid nodule containing a large amount of fat in the left adrenal gland measures 4.0 x 2.7 cm on series 3, image 94. Unremarkable right adrenal gland. An additional non radiotracer avid fat density nodule within the lateral limb of the left adrenal gland is noted measuring approximately 9 mm. These nodules appears stable in size. Kidneys and ureters: Normal physiologic uptake. Numerous moderate size bilateral renal parapelvic cysts are noted. Stomach and bowel: There is a surgical staple line in the sigmoid colon with uptake along the left lateral aspect of the anastomotic site demonstrating an SUV max 5.4 (previously 4.7). An approximately 2 cm in length segment of sigmoid colon proximal to this region on series 3, image 135 continues to be decompressed and currently demonstrates an SUV max 7.3 (previously 4.5). No definite mass or wall thickening is identified in this region on the CT abdomen and pelvis of 06/07/2022. Vasculature: No abnormal uptake. Diffuse atherosclerotic changes are noted. Lymph nodes: There is a partially calcified soft tissue density anterior to the distal abdominal aorta measuring 2.8 cm in diameter on series 3, image 124, SUV max 2.6 (previously measuring 2.1 cm in diameter on the prior PET-CT with the prior SUV max 2.7). A slightly more superiorly located retroperitoneal lymph node adjacent to the anterior aspect of the aorta on series 3, image 117 measures 1 cm, is unchanged in size compared with the prior CT and prior PET-CT and continues to be non radiotracer avid. Scattered small lymph nodes adjacent to the sigmoid colon and rectum are unchanged in size and continue to be non radiotracer avid for example measuring 7 mm adjacent to the sigmoid colon on the left on series 3, image 144. Bones/joints: No abnormal uptake in the visualized axial and appendicular skeleton. A [id number] degree of diffuse degenerative vertebral body spondylosis is noted. There is a partially imaged lobulated sclerotic intramedullary lesion in the region of the distal femoral metaphysis which is not radiotracer avid on series 3, image 229 measuring approximately 2.2 x 1.6 cm in the axial plane. The inferior aspect of this lesion is not imaged. A non radiotracer avid sclerotic density in the pubic bone on the left is consistent with a benign bone island. Soft tissues: No abnormal uptake in the visualized head, neck, chest, abdomen, pelvis, and extremities. METRICS: Mediastinal blood pool: SUV max 3.3 PET/PET skulltothigh SUBSEQ [id number] IMPRESSION: 1. Elevated uptake along the left lateral aspect of the sigmoid colonic surgical anastomotic site has increased (SUV max 5.4, previously 4.7). This uptake may be physiologic or artifactual, associated with the presence of the surgical clips. The possibility of residual or recurrent neoplastic involvement or inflammatory changes/colitis cannot be excluded. 2. A short segment of decompressed sigmoid colon proximal to the surgical anastomotic site demonstrates elevated uptake (SUV max 7.3, previously 4.5). This uptake may be physiologic as there is no definite underlying lesion on the CT images. Attention to this region is recommended on follow-up imaging. 3. A solid soft tissue density nodule which may represent a partially calcified lymph node anterior to the distal abdominal aorta has increased in size since the prior PET-CT however it continues to demonstrate low-level activity (SUV max 2.6). A benign etiology, treated malignancy or non hypermetabolic neoplastic involvement are considerations. 4. Similar small non radiotracer avid retroperitoneal and pericolonic lymph nodes. 5. A left lower lobe nodule is slightly increased in size with low-level activity. An additional nodule in the lingula appears to be present without hypermetabolic activity and appears increased in size although assessment is limited by respiratory motion artifact. These nodules are indeterminate however the apparent increase in size of these nodules is concerning for possible neoplastic involvement. 6. Stable fat containing left adrenal nodules without elevated uptake compatible with benign findings likely representing myelolipomas. 7. Additional nonurgent findings as detailed above.
== END 2023-04-02 07:31 | disposition home or self-care (01) ==
LOC: RAD 04-04 05:34
PROVIDERS: PCP Family Medicine; Visit Provider Nurse Practitioner Family
DX: C18.7 Malignant neoplasm of sigmoid colon (principal); R91.8 Other nonspecific abnormal finding of lung field; E27.9 Disorder of adrenal gland, unspecified
CPT/HCPCS: 78815; A9552

== ENCOUNTER 2023-06-22 06:39 | Day surgery (SDC) | payer BC, SELFPAY ==
[2023-06-22 06:51] VITALS: BP 183/113; PULSE 71; RESP 18; TEMP 36.2; O2SAT 98; BMI 34.3
[2023-06-22] MEDS: sodium chloride 0.9% 1,000 ML 30 ML IV (07:04)
--- NOTE | 2023-06-22 07:08 | ANES.PREANE2 ---
Pre-Anesthetic Assessment Height/Weight: Height 1.91 m Weight 124.738 kg Temp Pulse Resp BP Pulse Ox O2 Del Method 97.1 F L 71 18 183/113 98 Room Air 06/22/23 06:51 06/22/23 06:51 06/22/23 06:51 06/22/23 06:51 06/22/23 06:51 06/22/23 06:51 Operation Date: 06/22/23 07:00 Proposed Procedures p Colonoscopy 43467,Z85.038(Not Applicable) - Harshal Street DO Familial anesthetic complications: None Was Beta Samreen taken within 24 hours: N/A Was Clonidine taken within 24 hours: N/A Last intake: Intake Last Liquid Date 06/21/23 Last Liquid Time 22:00 Last Solid Date 06/20/23 Last Solid Time 18:00 Social No alcohol and No tobacco Exam alert, oriented x 3, clear to auscultation bilaterally and regular rate & rhythm Airway Mallampati: Class III Dentition: other (missing teeth) Comments: Comments: full remy GI hx colon cancer Anesthetic Plan ASA status: 3 Anesthesia: MAC Risk of > 500 ml blood loss (7ml/kg in children): No Medications/Allergies Home Medications Medication Instructions Recorded Confirmed Last Taken Type hydrocodone 5 mg-acetaminophen 325 1 tab PO Q8H PRN Pain 02/25/22 06/22/23 07/22/22 History mg tablet lisinopril 20 mg tablet 20 mg PO DAILY 02/25/22 06/20/23 06/21/23 History clonidine HCl 0.1 mg tablet 0.1 mg PO BID 11/23/22 06/20/23 06/21/23 History Allergies Allergy/AdvReac Type Severity Reaction Status Date / Time No Known Allergies Allergy Verified 04/19/23 14:15 Current Medications Generic Name Dose Route Start Last Admin Trade Name Freq PRN Reason Stop Dose Admin Sodium Chloride 1,000 mls @ 30 mls/hr 06/22/23 06:45 06/22/23 07:04 Sodium Chloride 0.9% IV 06/23/23 06:44 30 mls/hr .Q24H PINKY Administration PFSH Anesthesia Medical History (Updated 04/19/23 @ 14:[address] DO) History of colon cancer Hypertension Mucinous cystadenoma of appendix Surgical History History of appendectomy History of colonoscopy 2021 History of incisional hernia repair History of partial colectomy (06/25/16) Sigmoid colon resection History of removal of Port-a-Cath 07/05/2017 History of tonsillectomy Family History Father Cancer Dementia Other Diabetes Hyperlipidemia Hypertension Denies family history of CAD (coronary artery disease) Clotting disorder Psychiatric illness Chronic kidney disease (CKD) Suicide Anesthesia complication Bleeding disorder Lung disease Stroke Social History Smoking and tobacco/nicotine status: never used tobacco/nicotine Alcohol intake: never Substance/Drug Use: never Current gender identity: Male Data Anesthesia Cardiac Studies: No Data to Display
--- NOTE | 2023-06-22 07:58 | PM.HP ---
Providers/Chief Complaint Primary Care Provider: Janeth Ramirez DO Chief Complaint: Z85.038 History of Present Illness Bk Tamayo is a 63 year old male Review of Systems General: Reports: 10 or more systems reviewed and unremarkable except in HPI and below Medications/Allergies Home Medications Medication Instructions Recorded Confirmed Last Taken Type hydrocodone 5 mg-acetaminophen 325 1 tab PO Q8H PRN Pain 02/25/22 06/22/23 07/22/22 History mg tablet lisinopril 20 mg tablet 20 mg PO DAILY 02/25/22 06/20/23 06/21/23 History clonidine HCl 0.1 mg tablet 0.1 mg PO BID 11/23/22 06/20/23 06/21/23 History Allergies Allergy/AdvReac Type Severity Reaction Status Date / Time No Known Allergies Allergy Verified 04/19/23 14:15 PFSH Acute PFSH: Medical History (Updated 04/19/23 @ 14:[address] DO) History of colon cancer Hypertension Mucinous cystadenoma of appendix Surgical History History of appendectomy History of colonoscopy 2021 History of incisional hernia repair History of partial colectomy (06/25/16) Sigmoid colon resection History of removal of Port-a-Cath 07/05/2017 History of tonsillectomy Family History Father Cancer Dementia Other Diabetes Hyperlipidemia Hypertension Denies family history of CAD (coronary artery disease) Clotting disorder Psychiatric illness Chronic kidney disease (CKD) Suicide Anesthesia complication Bleeding disorder Lung disease Stroke Social History Smoking and tobacco/nicotine status: never used tobacco/nicotine Alcohol intake: never Substance/Drug Use: never Current gender identity: Male Vitals/I&O/Wt Last Vital Signs Temp 97.1 F L 06/22/23 06:51 Pulse 71 06/22/23 06:51 Resp 18 06/22/23 06:51 BP 183/113 06/22/23 06:51 Pulse Ox 98 06/22/23 06:51 O2 Del Method Room Air 06/22/23 06:51 Weight last 48 hrs Weight 275 lb A&P Assessment and plan (1) History of colon cancer: (2) Anastomotic stricture of colorectal region: Plan Colonoscopy with possible balloon dilation The risks and benefits of the procedure, including bleeding, infection, intestinal perforation requiring surgery, missed lesion were explained to the patient. The patient is understanding of the risks and wishes to proceed. Attestations Medical Necessity Statement*: Home Coding Level of Care Code Acute Code for Chg Fwd Diagnoses History of colon cancer Z85.038 Anastomotic stricture of colorectal region K91.30
[2023-06-22 08:42] VITALS: BP 196/120; PULSE 75; RESP 16; TEMP 36.5; O2SAT 96
[2023-06-22 08:47] VITALS: BP 172/113; PULSE 76; RESP 18; O2SAT 97
[2023-06-22 08:57] VITALS: BP 190/111; PULSE 70; RESP 18; O2SAT 97
--- NOTE | 2023-06-22 09:05 | ANE.PACU2 ---
Inpatient post-anesthesia follow up: Airway intact: Yes Vital signs: Temperature 97.7 F Pulse Rate 70 Respiratory Rate 18 Blood Pressure 190/111 Pulse Oximetry 97 Oxygen Delivery Me thod Room Air Oxygen Flow Rate Fraction of Inspir ed Oxygen Hydration adequate: Yes Nausea and vomiting: No Pain level: 1 Mental status: Baseline
== END 2023-06-22 09:08 | disposition home or self-care (01) ==
PROVIDERS: PCP Family Medicine; Visit Provider Surgery
PROC: 0DJD8ZZ Inspection of Lower Intestinal Tract, Via Natural or Artificial Opening Endoscopic (ICD-10-PCS; CPT 45378; principal; 2023-06-22 07:00)
DX: Z85.038 Personal history of other malignant neoplasm of large intestine (principal); D12.4 Benign neoplasm of descending colon; K91.30 Postprocedural intestinal obstruction, unspecified as to partial versus complete; I10 Essential (primary) hypertension; Z90.49 Acquired absence of other specified parts of digestive tract
CPT/HCPCS: 45380; 45385; 45386; 88305; J2704; J7030